=== PATIENT | female | born 1935 | race African-American/Black ===

== ENCOUNTER 2017-06-30 16:18 | Observation (INO) | payer MEDICAID ==
[~2017-06-30] VITALS: Ht 170.2 cm; Wt 68.0 kg
[2017-06-30] VITALS (7 sets, daily range): BP systolic 130–216; BP diastolic 69–87; PULSE 57–74; RESP 16–18; TEMP 97.4–98.4; O2SAT 97–99
[2017-06-30] MEDS ORDERED: ATEN50TA PO (16:35)
[2017-06-30] MEDS ORDERED: GLIP10TA6 PO (16:35)
[2017-06-30] MEDS ORDERED: METF500T PO (16:35)
[2017-06-30] MEDS ORDERED: hydrALAZINE HCL 20 MG/ML VIAL IV PUSH ONE (17:00)
[2017-06-30] MEDS ORDERED: SODIUM CHLORIDE 0.9% FLUSH 10 ML FLUSH IVF PRN (17:00)
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
--- NOTE | 2017-06-30 17:27 | RADRPT ---
EXAM DATE/TIME: 06/30/2017 17:08 [place] COMPARISON: No previous studies available for comparison. INDICATIONS : Chest pain and palpitations. MEDICAL HISTORY : Hypertension, Diabetes. SURGICAL HISTORY : None. ENCOUNTER: Initial ACUITY: 1 day PAIN SCORE: 6/10 LOCATION: Bilateral chest FINDINGS: A single view of the chest demonstrates the lungs to be symmetrically aerated without evidence of mas s, infiltrate or effusion. The cardiomediastinal contours are unremarkable with age-appropriate lucas ges of the aorta. Osseous structures are intact. CONCLUSION: Normal examination for a patient of this age. Kamran Barragan MD on June 30, 2017 at 17:24 Board Certified Radiologist. This report was verified electronically.
[2017-06-30 17:29] LABS: AUTOMATED NEUTROPHIL # 5.6 TH/MM3 (1.8-7.7); BASOPHIL % 0.4 % (0.0-2.0); EOSINOPHIL # 0.1 TH/MM3 (0-0.4); EOSINOPHIL % 1.3 % (0.0-4.0); HEMOGLOBIN 13.2 GM/DL (11.6-15.3); LYMPH % 36.3 % (9.0-44.0); LYMPHOCYTE # 3.6 TH/MM3 (1.0-4.8); MEAN CELL VOLUME 94.5 FL (80.0-100.0); MEAN CORPUSCULAR HEMOGLOBIN 31.1 PG (27.0-34.0); MEAN CORPUSCULAR HGB CONC 32.9 % (32.0-36.0); MEAN PLATELET VOLUME 7.8 FL (7.0-11.0); MONO % 5.7 % (0.0-8.0); MONOCYTE # 0.6 TH/MM3 (0-0.9); NEUT % 56.3 % (16.0-70.0); PLATELET COUNT 358 TH/MM3 (150-450); RED BLOOD COUNT 4.24 MIL/MM3 (4.00-5.30); RED CELL DISTRIBUTION WIDTH 12.9 % (11.6-17.2)
[2017-06-30 17:42] LABS: PROTHROMBIN TIME - PATIENT 10.6 SEC (9.8-11.6)
[2017-06-30 18:35] LABS: ALBUMIN 3.3 GM/DL (3.4-5.0); ALKALINE PHOSPHATASE 61 U/L (45-117); ALT (GPT) 18 U/L (10-53); AST (GOT) 32 U/L (15-37); BICARBONATE 24.6 MEQ/L (21.0-32.0); BLOOD UREA NITROGEN 14 MG/DL (7-18); CALCIUM 9.1 MG/DL (8.5-10.1); CHLORIDE 102 MEQ/L (98-107); CREATININE 1.13 MG/DL (0.50-1.00); GLOMERULAR FILTRATION RATE 46 ML/MIN (>89); GLUCOSE,RANDOM 288 MG/DL (74-106); SODIUM (NA) 136 MEQ/L (136-145); TOTAL BILIRUBIN ADULT 0.6 MG/DL (0.2-1.0); TOTAL PROTEIN 7.7 GM/DL (6.4-8.2); TROPONIN I LESS THAN 0.02 NG/ML (0.02-0.05)
[2017-06-30 18:49] LABS: BILIRUBIN, URINE NEG (NEG); BLOOD, URINE NEG (NEG); GLUCOSE,URINE 1000 mg/dL (NEG); HYALINE CAST, URINE 4 /lpf (RARE); KETONE, URINE 10 mg/dL (NEG); MUCUS URINE FEW /lpf (OCC); NITRITE,URINE NEG (NEG); PH, URINE 6.5 (5.0-8.5); URINE COLOR YELLOW (YELLW/STRAW); URINE LEUKOCYTE ESTERASE NEG (NEG)
--- NOTE | 2017-06-30 19:15 | PD ---
Data Data Last Documented VS Vital Signs Date Time Temp Pulse Resp B/P (MAP) Pulse Ox O2 Delivery O2 Flow Rate FiO2 06/30/17 17:58 74 16 160/71 (100) 98 Room Air 06/30/17 16:26 97.4 Orders Orders Electrocardiogram (06/30/17 16:55) Complete Blood Count With Diff (06/30/17 16:55) Comprehensive Metabolic Panel (06/30/17 16:55) Magnesium (Mg) (06/30/17 16:55) Ckmb (Isoenzyme) Profile (06/30/17 16:55) Troponin I (06/30/17 16:55) Act Partial Throm Time (Ptt) (06/30/17 16:55) Prothrombin Time / Inr (Pt) (06/30/17 16:55) Urinalysis - C+S If Indicated (06/30/17 16:55) Chest, Single Ap (06/30/17 16:55) Blood Glucose (06/30/17 16:55) Ecg Monitoring (06/30/17 16:55) Iv Access Insert/Monitor (06/30/17 16:55) Oximetry (06/30/17 16:55) Sodium Chloride 0.9% Flush (Ns Flush) (06/30/17 17:00) Orthostatic Vital Signs (06/30/17 16:55) Hydralazine Inj (Apresoline Inj) (06/30/17 17:00) CKMB (06/30/17 17:00) CKMB% (06/30/17 17:00) Diet 1800 Ada Cons Carb (06/30/17 Dinner) Labs Laboratory Tests Test 06/30/17 17:00 06/30/17 17:40 White Blood Count 10.0 TH/MM3 Red Blood Count 4.24 MIL/MM3 Hemoglobin 13.2 GM/DL Hematocrit 40.0 % Mean Corpuscular Volume 94.5 FL Mean Corpuscular Hemoglobin 31.1 PG Mean Corpuscular Hemoglobin Concent 32.9 % Red Cell Distribution Width 12.9 % Platelet Count 358 TH/MM3 Mean Platelet Volume 7.8 FL Neutrophils (%) (Auto) 56.3 % Lymphocytes (%) (Auto) 36.3 % Monocytes (%) (Auto) 5.7 % Eosinophils (%) (Auto) 1.3 % Basophils (%) (Auto) 0.4 % Neutrophils # (Auto) 5.6 TH/MM3 Lymphocytes # (Auto) 3.6 TH/MM3 Monocytes # (Auto) 0.6 TH/MM3 Eosinophils # (Auto) 0.1 TH/MM3 Basophils # (Auto) 0.0 TH/MM3 CBC Comment DIFF FINAL Differential Comment Prothrombin Time 10.6 SEC Prothromb Time International Ratio 1.0 RATIO Activated Partial Thromboplast Time 19.6 SEC Blood Urea Nitrogen 14 MG/DL Creatinine 1.13 MG/DL Random Glucose 288 MG/DL Total Protein 7.7 GM/DL Albumin 3.3 GM/DL Calcium Level 9.1 MG/DL Magnesium Level 2.0 MG/DL Alkaline Phosphatase 61 U/L Aspartate Amino Transf (AST/SGOT) 32 U/L Alanine Aminotransferase (ALT/SGPT) 18 U/L Total Bilirubin 0.6 MG/DL Sodium Level 136 MEQ/L Potassium Level 4.1 MEQ/L Chloride Level 102 MEQ/L Carbon Dioxide Level 24.6 MEQ/L Anion Gap 9 MEQ/L Estimat Glomerular Filtration Rate 46 ML/MIN Total Creatine Kinase 133 U/L Creatine Kinase MB 0.7 NG/ML Troponin I LESS THAN 0.02 NG/ML Urine Color YELLOW Urine Turbidity CLEAR Urine pH 6.5 Urine Specific Waldo 1.015 Urine Protein NEG mg/dL Urine Glucose (UA) 1000 mg/dL Urine Ketones 10 mg/dL Urine Occult Blood NEG Urine Nitrite NEG Urine Bilirubin NEG Urine Urobilinogen LESS THAN 2.0 MG/DL Urine Leukocyte Esterase NEG Urine RBC 8 /hpf Urine WBC 1 /hpf Urine Hyaline Casts 4 /lpf Urine Mucus FEW /lpf Microscopic Urinalysis Comment CULT NOT INDICATED [facility] Supervised Visit with HANNAH: Yes Narrative Course The history, exam, and medical decision-making in the associated midlevel provider note were completed with my assistance. I reviewed and agree with the findings presented. I attest that I had a [id number] encounter with the patient on the same day, and personally performed and documented my assessment and findings in the medical record. *My assessment and Findings: This is an 82-year-old female who presents to the emergency department with an episode of lightheadedness and near syncope. She was placed on a monitor and an IV was established. Labs are are reassuring. EKG appears quite ischemic with T-wave inversions in leads V2 through V4. I think she requires in leads V2 through V4. I think she requires observation for serial cardiac enzymes and risk stratification given her abnormal EKG and her age. Diagnosis Primary Impression: Near syncope Additional Impression: Abnormal EKG Admitting Information Admitting Physician Requests: Observation Petrona Cast MD Jun 30, 2017 19:15
[2017-06-30] MEDS ORDERED: LACTULOSE SYRUP 20 GM/30 ML CUP PO PRN (19:30)
[2017-06-30] MEDS ORDERED: ACETAMINOPHEN 325 MG TAB PO PRN (19:30)
[2017-06-30] MEDS ORDERED: SODIUM CHLORIDE 0.9% FLUSH 10 ML FLUSH IV FLUSH PRN (19:30)
[2017-06-30] MEDS ORDERED: BISACODYL 10 MG SUPP RECTAL PRN (19:30)
[2017-06-30] MEDS ORDERED: MORPHINE SULFATE 2 MG/ML INJ IV PUSH PRN (19:30)
[2017-06-30] MEDS ORDERED: DEXTROSE 50% IN WATER 50 ML VIAL(D50) IV PUSH PRN (19:30)
[2017-06-30] MEDS ORDERED: ONDANSETRON HCL 4 MG/2 ML VIAL IVP PRN (19:30)
[2017-06-30] MEDS ORDERED: MAGNESIUM HYDROXIDE SUSP 30 ML CUP PO PRN (19:30)
[2017-06-30] MEDS ORDERED: SENNOSIDES 8.6 MG TAB PO PRN (19:30)
[2017-06-30] MEDS ORDERED: ACETAMINOPHEN/HYDROcodone 325 MG/5 MG TAB PO PRN (19:30)
[2017-06-30] MEDS ORDERED: GLUCAGON 1 MG/ML VIAL OTHER PRN (19:30)
[2017-06-30] MEDS ORDERED: SODIUM CHLOR 0.9% 1000 ML INJ 1,000 ML IV SCH (19:30)
--- NOTE | 2017-06-30 19:30 | HHI.HP ---
[facility] No Primary Care Physician Admission Diagnosis Diagnoses: (1) Near syncope Diagnosis: Principal (2) HTN (hypertension) Diagnosis: Principal (3) Renal insufficiency Diagnosis: Principal (4) DM (diabetes mellitus) Diagnosis: Principal Travel History International Travel<30 Days: No Contact w/Intl Traveler <30 Da: No Traveled to Known Affected Are: No History of Present Illness This is an 82-year-old female with a PMH of HTN and DM who is brought to the ER by EMS secondary to near syncopal episode. Per patient she had taken half-tab of Atenolol (25mg) this morning as she was running out, and had gone to [facility] to refill her prescription when she developed acute onset of dizziness/ lightheadedness w/ near syncope. Drank a few sips of Glucerna w/ no significant improvement. Denies h/o similar symptoms. No c/o chest pain, SOB, cough, fever or chills. Upon EMS arrival, BS 301. BP 216/87, HR 57, O2 sat 97 % on RA, Afebrile. CBC unremarkable. Creatinine 1.13, no previous labs for comparison. Troponin negative. INR 1.0. UA negative. CXR normal. EKG w/ t- wave inversions lateral leads. No prior EKG for comparison. Review of Systems Except as stated in HPI: all other systems reviewed are Neg ROS: 14 point review of systems otherwise negative. Past Family Social History Past Medical History PMH: HTN and DM Past Surgical History PAST SURGICAL HISTORY: Hysterectomy Allergies: Coded Allergies: No Known Allergies (Unverified , 06/30/17) Family History PAST FAMILY HISTORY: Reviewed. No h/o DM or CAD Social History PAST SOCIAL HISTORY: Negative for alcohol, tobacco or drugs. Physical Exam Vital Signs Vital Signs Date Time Temp Pulse Resp B/P (MAP) Pulse Ox O2 Delivery O2 Flow Rate FiO2 06/30/17 17:58 74 16 160/71 (100) 98 Room Air 06/30/17 17:55 67 16 172/70 (104) 66 16 167/74 (105) 81 18 172/77 (108) 06/30/17 17:01 16 98 Room Air 06/30/17 16:35 16 98 Room Air 06/30/17 16:26 97.4 57 16 216/87 (130) 97 Physical Exam PE: GENERAL: Extremely pleasant elderly female in no acute distress. Son at bedside. HEENT: PERRLA, EOMI. No scleral icterus or conjunctival pallor. No lid lag or facial droop. CARDIOVASCULAR: Regular rate and rhythm. No obvious murmurs to auscultation. No chest tenderness to palpation. RESPIRATORY: No obvious rhonchi or wheezing. Clear to auscultation. Breath sounds equal bilaterally. GASTROINTESTINAL: Abdomen soft, non-tender, nondistended. BS normal. MUSCULOSKELETAL: Extremities without clubbing, cyanosis, or edema. No obvious deformities. NEUROLOGICAL: Awake, alert and oriented x4. No focal neurologic deficits. Moving both upper and lower extremities spontaneously. Laboratory Laboratory Tests Test 06/30/17 17:00 06/30/17 17:40 White Blood Count 10.0 Red Blood Count 4.24 Hemoglobin 13.2 Hematocrit 40.0 Mean Corpuscular Volume 94.5 Mean Corpuscular Hemoglobin 31.1 Mean Corpuscular Hemoglobin Concent 32.9 Red Cell Distribution Width 12.9 Platelet Count 358 Mean Platelet Volume 7.8 Neutrophils (%) (Auto) 56.3 Lymphocytes (%) (Auto) 36.3 Monocytes (%) (Auto) 5.7 Eosinophils (%) (Auto) 1.3 Basophils (%) (Auto) 0.4 Neutrophils # (Auto) 5.6 Lymphocytes # (Auto) 3.6 Monocytes # (Auto) 0.6 Eosinophils # (Auto) 0.1 Basophils # (Auto) 0.0 CBC Comment DIFF FINAL Differential Comment Prothrombin Time 10.6 Prothromb Time International Ratio 1.0 Activated Partial Thromboplast Time 19.6 Blood Urea Nitrogen 14 Creatinine 1.13 Random Glucose 288 Total Protein 7.7 Albumin 3.3 Calcium Level 9.1 Magnesium Level 2.0 Alkaline Phosphatase 61 Aspartate Amino Transf (AST/SGOT) 32 Alanine Aminotransferase (ALT/SGPT) 18 Total Bilirubin 0.6 Sodium Level 136 Potassium Level 4.1 Chloride Level 102 Carbon Dioxide Level 24.6 Anion Gap 9 Estimat Glomerular Filtration Rate 46 Total Creatine Kinase 133 Creatine Kinase MB 0.7 Troponin I LESS THAN 0.02 Urine Color YELLOW Urine Turbidity CLEAR Urine pH 6.5 Urine Specific Willard 1.015 Urine Protein NEG Urine Glucose (UA) 1000 Urine Ketones 10 Urine Occult Blood NEG Urine Nitrite NEG Urine Bilirubin NEG Urine Urobilinogen LESS THAN 2.0 Urine Leukocyte Esterase NEG Urine RBC 8 Urine WBC 1 Urine Hyaline Casts 4 Urine Mucus FEW Microscopic Urinalysis Comment CULT NOT INDICATED Result Diagram: 06/30/17169906/30/171699 Caprini VTE Risk Assessment Caprini VTE Risk Assessment: No/Low Risk (score <= 1) Caprini Risk Assessment Model Point Value = 1 Point Value = 2 Point Value = 3 Point Value = 5 Age 41-60 Minor surgery BMI > 25 kg/m2 Swollen legs Varicose veins or History of unexplained or recurrent spontaneous Oral contraceptives or hormone replacement Sepsis (< 1 month) Serious lung disease, including pneumonia (< 1 month) Abnormal pulmonary function Acute myocardial infarction Congestive heart failure (< 1 month) History of inflammatory bowel disease Medical patient at bed rest Age 61-74 Arthroscopic surgery Major open surgery (> 45 min) Laparoscopic surgery (> 45 min) Malignancy Confined to bed (> 72 hours) Immobilizing plaster cast Central venous access Age >= 75 History of VTE Family history of VTE Factor V Leiden Prothrombin [id number] Lupus anticoagulant Anticardiolipin antibodies Elevated serum homocysteine Heparin-induced thrombocytopenia Other congenital or acquired thrombophilia Stroke (< 1 month) Elective arthroplasty Hip, pelvis, or leg fracture Acute spinal cord injury (< 1 month) Prophylaxis Regimen Total Risk Factor Score Risk Level Prophylaxis Regimen 0-1 Low Early ambulation 2 Moderate Order ONE of the following: *Sequential Compression Device (SCD) *Heparin 5000 units SQ BID 3-4 Higher Order ONE of the following medications: *Heparin 5000 units SQ TID *Enoxaparin/Lovenox 40 mg SQ daily (WT < 150 kg, CrCl > 30 mL/min) *Enoxaparin/Lovenox 30 mg SQ daily (WT < 150 kg, CrCl > 10-29 mL/min) *Enoxaparin/Lovenox 30 mg SQ BID (WT < 150 kg, CrCl > 30 mL/min) AND/OR *Sequential Compression Device (SCD) 5 or more Highest Order ONE of the following medications: *Heparin 5000 units SQ TID (Preferred with Epidurals) *Enoxaparin/Lovenox 40 mg SQ daily (WT < 150 kg, CrCl > 30 mL/min) *Enoxaparin/Lovenox 30 mg SQ daily (WT < 150 kg, CrCl > 10-29 mL/min) *Enoxaparin/Lovenox 30 mg SQ BID (WT < 150 kg, CrCl > 30 mL/min) AND *Sequential Compression Device (SCD) Assessment and Plan Problem List: (1) Near syncope ICD Code: R55 - Syncope and collapse Status: Acute (2) Renal insufficiency ICD Code: N28.9 - Disorder of kidney and ureter, unspecified (3) HTN (hypertension) ICD Code: I10 - Essential (primary) hypertension (4) DM (diabetes mellitus) ICD Code: E11.9 - Type 2 diabetes mellitus without complications Assessment and Plan A/P: 1. Near Syncope: acute onset of dizziness/lightheadedness w/ near syncopal event. +abnormal ekg w/ lateral t-wave inversions, no previous EKG for comparison, R/o ACS to eval for possible ischemia. Initial trop negative. Admit for Observation, place on telemetry, check serial cardiac enzymes and serial EKG. Start ASA, Statin, resume Atenolol-caution w/ bradycardia. Consult Cardiology as needed for further eval. Check Echo to eval for valvular abnormality/cardiomyopathy. 2. HTN: Uncontrolled. Took 1/2 dose of Atenolol today as running out of meds. BP on arrival, 216/87, HR 57. Resume home Atenolol, hold parameters for bradycardia, monitor BP closely. 3. DM: Uncontrolled. BS 288. Check Hgb A1c. Start Sliding scale w/ Accu- Cheks. Resume home Glipizide. Hold Metformin for possible cardiac intervention. 4. DVT Prophylaxis: SCD/Teds. 5. Social work for d/c planning as needed. 6. Labs/imaging/records reviewed by me, case discussed at length w/ ER physician. Jackie Corrigan MD Jun 30, 2017 19:30
[2017-06-30] MEDS: DOCUSATE SODIUM 50 MG/SENNA 8.6 MG TAB PO SCH (21:00)
[2017-06-30] MEDS: SODIUM CHLORIDE 0.9% FLUSH 10 ML FLUSH IV FLUSH SCH (21:25)
[2017-06-30] MEDS: INSULIN ASPART SUPPLEMENTAL SCALE SQ SCH (21:25)
[2017-07-01 04:05] VITALS: BP 139/67; PULSE 66; RESP 16; TEMP 98.2; O2SAT 100
[2017-07-01 06:45] LABS: AST (GOT) 9 U/L (15-37); BICARBONATE 25.5 MEQ/L (21.0-32.0); BLOOD UREA NITROGEN 12 MG/DL (7-18); CALCIUM 8.7 MG/DL (8.5-10.1); CHLORIDE 104 MEQ/L (98-107); CREATININE 0.96 MG/DL (0.50-1.00); GLOMERULAR FILTRATION RATE 68 ML/MIN (>89); GLUCOSE,RANDOM 220 MG/DL (74-106); SODIUM (NA) 136 MEQ/L (136-145)
[2017-07-01 06:46] LABS: ALT (GPT) 15 U/L (10-53); CHOLESTEROL 189 MG/DL (120-200); TRIGLYCERIDES 107 MG/DL (42-150)
[2017-07-01 06:50] LABS: ALKALINE PHOSPHATASE 59 U/L (45-117); CHOLESTEROL/ HDL RATIO 3.24 RATIO; HDL CHOLESTEROL 58.2 MG/DL (40.0-60.0); LDL CHOLESTEROL 109 MG/DL (0-99); TOTAL BILIRUBIN ADULT 0.8 MG/DL (0.2-1.0); TOTAL PROTEIN 6.7 GM/DL (6.4-8.2); TROPONIN I LESS THAN 0.02 NG/ML (0.02-0.05)
[2017-07-01] MEDS ORDERED: glipiZIDE 10 MG TAB PO SCH (07:00)
[2017-07-01 08:00] VITALS: BP 186/79; PULSE 67; PULSE 77; RESP 20; TEMP 97.2; O2SAT 100
[2017-07-01] MEDS: INSULIN ASPART SUPPLEMENTAL SCALE SQ SCH ×3 (08:00→17:00)
[2017-07-01] MEDS: DOCUSATE SODIUM 50 MG/SENNA 8.6 MG TAB PO SCH (08:35)
[2017-07-01] MEDS: SODIUM CHLORIDE 0.9% FLUSH 10 ML FLUSH IV FLUSH SCH (08:36)
[2017-07-01 08:52] LABS: BASOPHIL % 0.5 % (0.0-2.0); EOSINOPHIL # 0.1 TH/MM3 (0-0.4); EOSINOPHIL % 1.3 % (0.0-4.0); HEMATOCRIT 37.9 % (35.0-46.0); HEMOGLOBIN 12.7 GM/DL (11.6-15.3); LYMPH % 28.5 % (9.0-44.0); LYMPHOCYTE # 2.3 TH/MM3 (1.0-4.8); MEAN CELL VOLUME 93.2 FL (80.0-100.0); MEAN CORPUSCULAR HEMOGLOBIN 31.2 PG (27.0-34.0); MEAN CORPUSCULAR HGB CONC 33.4 % (32.0-36.0); MEAN PLATELET VOLUME 7.9 FL (7.0-11.0); MONO % 6.8 % (0.0-8.0); MONOCYTE # 0.5 TH/MM3 (0-0.9); NEUT % 62.9 % (16.0-70.0); PLATELET COUNT 319 TH/MM3 (150-450); RED BLOOD COUNT 4.06 MIL/MM3 (4.00-5.30); RED CELL DISTRIBUTION WIDTH 12.8 % (11.6-17.2)
[2017-07-01] MEDS ORDERED: ASPIRIN EC 81 MG TABEC PO SCH (09:00)
[2017-07-01] MEDS ORDERED: ATENOLOL 50 MG TAB PO SCH (09:00)
[2017-07-01] MEDS ORDERED: PRAVASTATIN SOD 40 MG TAB PO SCH (09:00)
--- NOTE | 2017-07-01 09:53 | HHI.PR ---
Subjective Remarks In nad. Patient says no more chest pain overnight. No sob, palpitations, diaphoresis. No fever or chills. No n/v/d/c. Objective Vitals Vital Signs Date Time Temp Pulse Resp B/P (MAP) Pulse Ox O2 Delivery O2 Flow Rate FiO2 07/01/17 08:00 97.2 77 20 186/79 (114) 100 07/01/17 04:05 98.2 66 16 139/67 (91) 100 06/30/17 23:56 98.3 66 16 142/69 (93) 99 06/30/17 22:04 98.4 66 16 130/79 (96) 99 06/30/17 20:28 65 18 162/72 (102) 100 06/30/17 17:58 74 16 160/71 (100) 98 Room Air 06/30/17 17:55 67 16 172/70 (104) 66 16 167/74 (105) 81 18 172/77 (108) 06/30/17 17:01 16 98 Room Air 06/30/17 16:35 16 98 Room Air 06/30/17 16:26 97.4 57 16 216/87 (130) 97 Result Diagram: 07/01/17 0710 07/01/17 0600 Imaging Last Impressions Chest X-Ray 06/30/17 1655 Signed Impressions: Service Date/Time: Friday, June 30, 2017 17:08 - CONCLUSION: Normal examination for a patient of this age. Kamran Barragan MD Objective Remarks GENERAL: Extremely pleasant elderly female in no acute distress. Son at bedside. CARDIOVASCULAR: Regular rate and rhythm. No obvious murmurs to auscultation. No chest tenderness to palpation. RESPIRATORY: No obvious rhonchi or wheezing. Clear to auscultation. Breath sounds equal bilaterally. GASTROINTESTINAL: Abdomen soft, non-tender, nondistended. BS normal. MUSCULOSKELETAL: Extremities without clubbing, cyanosis, or edema. No obvious deformities. NEUROLOGICAL: Awake, alert and oriented x4. No focal neurologic deficits. Moving both upper and lower extremities spontaneously. A/P Problem List: (1) Near syncope ICD Code: R55 - Syncope and collapse Status: Acute (2) Renal insufficiency ICD Code: N28.9 - Disorder of kidney and ureter, unspecified (3) HTN (hypertension) ICD Code: I10 - Essential (primary) hypertension (4) DM (diabetes mellitus) ICD Code: E11.9 - Type 2 diabetes mellitus without complications Assessment and Plan Near Syncope: acute onset of dizziness/lightheadedness w/ near syncopal event. +abnormal ekg w/ lateral t-wave inversions, no previous EKG for comparison, R/ o ACS to eval for possible ischemia. Initial trop negative. Admit for Observation, place on telemetry, check serial cardiac enzymes and serial EKG. Start ASA, Statin, resume Atenolol-caution w/ bradycardia. Consult Cardiology as needed for further eval. Check Echo normal EF, moderate aortic valve regurgitation Stress test is negative Patient to follow up as OP with PCP and cardiology HTN: Uncontrolled. Took 1/2 dose of Atenolol today as running out of meds. BP on arrival, 216/87, HR 57. Resume home Atenolol, hold parameters for bradycardia, monitor BP closely. DM2: Uncontrolled. BS 288. Check Hgb A1c. Start Sliding scale w/ Accu- Cheks. Resume home Glipizide. Hold Metformin for possible cardiac intervention. DVT Prophylaxis: SCD/Teds. CM consulted for d/c planning as needed. Discharge Planning DC home in stable condition to follow up as OP with PCP and consultants. Activity ad mariana as tolerated Meds per med reconciliations Diet healthy heart diet DC time> 30 min Rosana Youssef MD Jul 01, 2017 09:53
--- NOTE | 2017-07-01 11:52 | RADRPT ---
EXAM DATE/TIME: 07/01/2017 10:09 [facility] COMPARISON: No previous studies available for comparison. INDICATIONS : Syncope. MEDICAL HISTORY : Hypertension. Syncope. Diabetes. SURGICAL HISTORY : Hysterectomy. ENCOUNTER: Initial ACUITY: 1 day PAIN SCORE: 06/21 LOCATION: Bilateral neck PEAK SYSTOLIC VELOCITIES (cm/sec): ICA/CCA RATIO: Right: 1.2 Left: 1.1 ICA: Right: 91 Left: 83 CCA: Right: 76 Left: 79 ECA: Right: 90 Left: 67 VERTEBRAL: Right: 36 antegrade Left: 67 antegrade Elevated flow velocities and ICA/CCA ratios have been found to correlate with increased degrees of vessel stenosis, calculated as percentage of diameter relative to a normal segment of distal ICA/CCA FINDINGS: Antegrade flow is seen in both vertebral arteries. There is moderate atherosclerotic plaquing at the origin of both ICAs without any significant stenosis. CONCLUSION: No evidence for hemodynamically significant stenosis. Danial oLmax MD on July 01, 2017 at 11:49 Board Certified Radiologist. This report was verified electronically.
[2017-07-01 12:00] VITALS: BP 154/69; PULSE 60; RESP 20; TEMP 97.8; O2SAT 100
--- NOTE | 2017-07-01 12:00 | MB ---
cc: BERTRAM DUNLAP MD DATE OF CONSULTATION: 07/01/2017. REASON FOR CONSULTATION: Near syncope. HISTORY OF PRESENT ILLNESS: The patient is a pleasant 82-year-old woman with no prior cardiac history but has a history of hypertension and diabetes who presented after feeling near-syncopal while she was at [facility]. She has not actually pass out. She was brought to the emergency department and because her EKG was abnormal, was admitted for observation. She denies any current or history of chest pain. No other significant episodes of near-syncope and she is currently asymptomatic. PAST MEDICAL HISTORY: 1. Hypertension. 2. Diabetes. CURRENT MEDICATIONS: 1. Atenolol 15 milligrams daily. 2. Aspirin 81 milligrams daily. 3. Pravachol 40 milligrams daily. 4. Glipizide 10 milligrams twice a day. ALLERGIES: NO KNOWN DRUG ALLERGIES. PHYSICAL EXAMINATION: VITAL SIGNS: Afebrile, pulse 77, respiratory rate 20, blood pressure 186/79, satting 100% on room air. GENERAL: A pleasant well-appearing -[place] woman in no distress. NECK: No jugular venous distention. LUNGS: Clear to auscultation bilaterally. CARDIOVASCULAR: Regular rate and rhythm. No murmurs appreciated. ABDOMEN: Benign. EXTREMITIES: No edema. LABORATORY DATA: Sodium 136, potassium 3.6, chloride 104, bicarbonate 25.5, BUN 12, creatinine 0.96, glucose 220. EKGS: EKG shows sinus rhythm with anterolateral T wave changes possibly consistent with ischemia. RADIOLOGICAL STUDIES: Chest x-ray was normal. IMPRESSION: 1. Near syncope: The patient presents with near syncope and an abnormal EKG. She was actually quite hypertensive on admission. Due to her multiple risk factors including hypertension and diabetes as well as her advanced age, I would have her undergo an ischemic workup with a nuclear stress test as well and echocardiogram and carotid Dopplers. Further recommendations will be based on her clinical course. Thank you again for the opportunity to participate in this patient's care. MD EDVIN Phelan/SILVESTRE /10:41 AM /11:43 AM
[2017-07-01 12:06] LABS: HEMOGLOBIN A1C 9.9 % (4.3-6.0)
[2017-07-01] MEDS ORDERED: REGADENOSON INJ 0.4 MG/5 ML SYR ONE (12:52)
--- NOTE | 2017-07-01 13:14 | EKG ---
Date Performed: 06/30/2017 Time Performed: 17:19:25 PTAGE: 82 years EKG: Sinus rhythm MINIMAL VOLTAGE CRITERIA FOR LVH, CONSIDER NORMAL VARIANT MODERATE T-WAVE ABNORMALITY, CONSIDER ANTE RIOR ISCHEMIA ABNORMAL ECG NO PREVIOUS TRACING DOCTOR: Graham Contreras Interpretating Date/Time 07/01/2017 13:13:55
--- NOTE | 2017-07-01 14:25 | RADRPT ---
EXAM DATE/TIME: 07/01/2017 12:41 [facility] COMPARISON: No previous studies available for comparison. INDICATIONS : Near syncope. Abnormal EKG. DOSE: 25.6 mCi Tc99m Myoview at stress. 8.7 mCi Tc99m Myoview at rest. 0.4 mg Lexiscan STRESS SYMPTOMS: Shortness of breath. EJECTION FRACTION: 67% MEDICAL HISTORY : Hypertension. Diabetes mellitus type 2. SURGICAL HISTORY : Hysterectomy. ENCOUNTER: Initial ACUITY: 1 day PAIN SCALE: 0/10 LOCATION: chest TECHNIQUE: The patient underwent pharmacologic stress with infusion of prescribed dose. Continuous ECG tracing was monitored during stress. Gated SPECT imaging was performed after stress and conventional SPECT i maging was performed at rest. The examination was performed on a SPECT/CT scanner, both attenuation and non-corrected datasets were reviewed. FINDINGS: DISTRIBUTION: The maximum perfused segment at stress is in the septal wall. PERFUSION STUDY: The pattern of perfusion at stress demonstrates fixed defect in the anterior wall probably breast att enuation artifact without any significant ischemia. GATED STUDY: There is intact wall motion and thickening without hypokinetic or dyskinetic segments. CONCLUSION: No appreciable ischemia. RISK CATEGORY: Low (<1% Annual Mortality Rate) Danial Lomax MD on July 01, 2017 at 14:22 Board Certified Radiologist. This report was verified electronically.
--- NOTE | 2017-07-01 14:40 | ECHRPT ---
Indication: Cardiomyopathy, unspecified CONCLUSIONS Normal left ventricular size and wall thickness. The left ventricular systolic function is normal wi th an estimated ejection fraction in the range of 60-65%. Left ventricular diastolic function parameters a re normal. Moderate aortic valve regurgitation. Mild mitral valve regurgitation. There is moderate tricuspid regurgitation. The estimated pulmonary arterial pressure is 37.9 mmHg. Mild pulmonary valve regurgitation. BP: / HR: 60 Rhythm: Sinus MEASUREMENTS (Male / Female) Normal Values Technical Quality:Good 2D ECHO LV Diastolic Diameter PLAX 4.7 cm 4.2 - 5.9 / 3.9 - 5.3 cm LV Systolic Diameter PLAX 3.4 cm IVS Diastolic Thickness 0.8 cm 0.6 - 1.0 / 0.6 - 0.9 cm LVPW Diastolic Thickness 0.8 cm 0.6 - 1.0 / 0.6 - 0.9 cm LV Relative Wall Thickness 0.3 LVOT Diameter 1.9 cm M-MODE Aortic Root Diameter MM 2.7 cm LA Systolic Diameter MM 3.4 cm LA Ao Ratio MM 1.3 AV Cusp Separation MM 1.6 cm DOPPLER AV Peak Velocity 147.0 cm/s AV Peak Gradient 8.6 mmHg AI Peak Velocity 431.0 cm/s AI Peak Gradient 74.3 mmHg AI Pressure Half Time 685.0 ms LVOT Peak Velocity 103.0 cm/s LVOT Peak Gradient 4.2 mmHg AV Area Cont Eq pk 2.0 cm MR Peak Velocity 476.0 cm/s MR Peak Gradient 90.6 mmHg Mitral E Point Velocity 69.6 cm/s Mitral A Point Velocity 101.0 cm/s Mitral E to A Ratio 0.7 LV E' Lateral Velocity 5.4 cm/s Mitral E to LV E' Lateral Ratio 13.0 LV E' Septal Velocity 4.4 cm/s Mitral E to LV E' Septal Ratio 15.9 TR Peak Velocity 264.3 cm/s TR Peak Gradient 27.9 mmHg Right Atrial Pressure 10.0 mmHg Pulmonary Artery Systolic Pressu 37.9 mmHg Right Ventricular Systolic Press 37.9 mmHg PV Peak Velocity 89.6 cm/s PV Peak Gradient 3.2 mmHg FINDINGS LEFT VENTRICLE Normal left ventricular size and wall thickness. The left ventricular systolic function is normal wi th an estimated ejection fraction in the range of 60-65%. Doppler parameters are consistent with impaired left ventricular relaxtion (grade 1 diastolic dysfun ction). RIGHT VENTRICLE Normal right ventricular size and systolic function. LEFT ATRIUM The left atrial size is normal. RIGHT ATRIUM The right atrial size is normal. ATRIAL SEPTUM Normal atrial septal thickness without atrial level shunting by limited color doppler interrogation. AORTA The aortic root and proximal ascending aorta are normal in size on limited imaging. MITRAL VALVE Mild mitral valve regurgitation. AORTIC VALVE Moderate aortic valve regurgitation. TRICUSPID VALVE There is moderate tricuspid regurgitation. The estimated pulmonary arterial pressure is 37.9 mmHg. PULMONARY VALVE Mild pulmonary valve regurgitation. VESSELS The inferior vena cava is normal in size. PERICARDIUM No pericardial effusion. Graham Contreras MD (Electronically Signed) Final Date:01 July 2017 14:39
[2017-07-01 16:00] VITALS: BP 156/76; PULSE 65; RESP 20; TEMP 98.1; O2SAT 99
[2017-07-01] MEDS ORDERED: ECASA81 PO (16:18)
--- NOTE | 2017-07-01 16:22 | HHI.DCPOC ---
Discharge Care Plan Diagnosis: (1) Aortic valve regurgitation (2) Tricuspid valve regurgitation (3) Hemoglobin A1C greater than 9%, indicating poor diabetic control (4) DM (diabetes mellitus) (5) HTN (hypertension) (6) Renal insufficiency (7) Near syncope (8) Abnormal EKG Goals to Promote Your Health * To prevent worsening of your condition and complications * To maintain your health at the optimal level Directions to Meet Your Goals Strongly advise you to follow up with cardiology as an outpatient in regards to your echocardiogram results - moderate aortic valve regurgitation and moderate tricuspid regurgitation Strongly advise you to follow up with your primary care physician regarding your poorly controlled diabetes. Maintain a heart healthy diabetic diet Take your medications as prescribed Follow your dietary instruction Follow activity as directed Keep your appointments as scheduled Take your immunizations and boosters as scheduled If your symptoms worsen call your PCP, if no PCP go to Urgent Care Center or Emergency Room Smoking is Dangerous to Your Health. Avoid second hand smoke Call the 24-hour hour crisis hotline for domestic abuse at Lina Day Jul 01, 2017 16:22
== END 2017-07-01 19:24 | disposition home or self-care (01) ==
LOC: NEPC 16:18 → NEDA 19:37 → NEPGCP 20:55
PROVIDERS: ADMIT Hospitalist; ATTEND Hospitalist
DX: R55 Syncope and collapse (principal); I35.1 Nonrheumatic aortic (valve) insufficiency; I07.1 Rheumatic tricuspid insufficiency; E11.65 Type 2 diabetes mellitus with hyperglycemia; I10 Essential (primary) hypertension; N28.9 Disorder of kidney and ureter, unspecified; R94.31 Abnormal electrocardiogram [ECG] [EKG]; Z79.84 Long term (current) use of oral hypoglycemic drugs; Z79.82 Long term (current) use of aspirin; Z90.710 Acquired absence of both cervix and uterus
CPT/HCPCS: 71045; 78452; 80053; 80061; 81001; 82550; 82552; 82948; 83036; 83735; 84484; 85025; 85610; 85730; 93005; 93017; 93306; 93880; 96361; 96372; 96374; 97161; 99285; A9502; G0378; G8987; G8988; J0360; J1815; J2785; J7030

== ENCOUNTER 2017-07-05 15:15 | Emergency (ER) | payer MEDICAID ==
[~2017-07-05] VITALS: Ht 170.2 cm; Wt 67.3 kg
[~2017-07-05 15:15] MED LIST: ATEN50TA PO; ECASA81 PO; GLIP10TA6 PO; METF500T PO
[2017-07-05 15:22] VITALS: BP 218/97; PULSE 68; RESP 14; TEMP 97.4; O2SAT 98
[2017-07-05 15:48] VITALS: BP 179/77; PULSE 62; RESP 16; O2SAT 99
[2017-07-05] MEDS ORDERED: SODIUM CHLORID 0.9% 500 ML INJ 500 ML IV ONE ×2 (16:00→19:00)
--- NOTE | 2017-07-05 16:06 | PD ---
HPI Chief Complaint: Diabetic Time Seen by Provider: 15:32 Travel History International Travel<30 days: No Contact w/Intl Traveler<30days: No Traveled to known affect area: No History of Present Illness HPI Patient comes into the emergency department complaining of elevated blood sugar 400 and some blurry vision with this. Patient states that she ate approximately 30 minutes prior to checking her blood glucose, but felt that it was going high secondary to feeling like her vision becoming slightly blurry. Patient reports symptoms are improving. Patient denies any chest pain with this , shortness of breath, headaches, numbness or tingling, weakness, or dizziness. Patient reports she was in the hospital approximately a week ago for the same was receiving insulin at that time but currently only takes her oral medications. Patient states she has lived in the [place] for 14 months, but does not have a primary care doctor. PFSH Past Medical History Blood Disorders: No Cancer: No Cardiovascular Problems: Yes (HTN) Diabetes: Yes (DMII) Patient Takes Glucophage: No Endocrine: No Hypertension: Yes Immune Disorder: No Thyroid Disease: No Past Surgical History Surgical History: No Previous Surgery Hysterectomy: Yes Social History Alcohol Use: No Tobacco Use: No Substance Use: No Allergies-Medications (Allergen,Severity, Reaction): Coded Allergies: No Known Allergies (Unverified , 06/30/17) Reported Meds & Prescriptions Reported Meds & Active Scripts Active Aspirin DR (Aspirin) 81 Mg Tabdr 81 Mg PO DAILY Reported Atenolol 50 Mg Tab 50 Mg PO DAILY Glipizide 10 Mg Tab 10 Mg PO BIDAC Take 30 minutes before a meal Metformin (Metformin HCl) 500 Mg Tab 500 Mg PO BIDPC Review of Systems Except as stated in HPI: all other systems reviewed are Neg Physical Exam Narrative GENERAL: Well-developed, well nourished, in no acute distress, and non-ill appearing. SKIN: Focused skin assessment warm and dry. HEAD: Atraumatic. Normocephalic. EYES: Pupils equal and round. EOMI. No scleral icterus. No injection or drainage. ENT: No nasal bleeding or discharge. Mucous membranes pink and moist. NECK: Trachea midline. Supple. No nuclear rigidity. CARDIOVASCULAR: Regular rate and rhythm. No murmur appreciated. RESPIRATORY: No accessory muscle use. No respiratory distress. Clear to auscultation. Breath sounds equal bilaterally. MUSCULOSKELETAL: No obvious deformities. No clubbing. No cyanosis. No edema. Full range of motion. NEUROLOGICAL: Awake and alert. No obvious cranial nerve deficits. Motor grossly within normal limits. Normal speech. PSYCHIATRIC: Appropriate mood and affect; insight and judgment normal. Data Data Last Documented VS Vital Signs Date Time Temp Pulse Resp B/P (MAP) Pulse Ox O2 Delivery O2 Flow Rate FiO2 07/05/17 20:04 07/05/17 15:48 62 16 99 Room Air 07/05/17 15:22 97.4 Orders Orders Complete Blood Count With Diff (07/05/17 15:25) Urinalysis - C+S If Indicated (07/05/17 15:25) Beta Hydroxybutyrate (Acetone) (07/05/17 15:58) Blood Gas Venous (Vbg) (07/05/17 15:58) Sodium Chlorid 0.9% 500 Ml Inj (Ns 500 M (07/05/17 16:00) Lipase (07/05/17 15:58) Comprehensive Metabolic Panel (07/05/17 16:00) Sodium Chlorid 0.9% 500 Ml Inj (Ns 500 M (07/05/17 19:00) Ed Discharge Order (07/05/17 19:58) Labs Laboratory Tests Test 07/05/17 16:00 07/05/17 16:30 07/05/17 17:34 07/05/17 19:20 Blood Urea Nitrogen 14 MG/DL Creatinine 1.05 MG/DL Random Glucose 331 MG/DL Total Protein 7.8 GM/DL Albumin 3.5 GM/DL Calcium Level 10.0 MG/DL Alkaline Phosphatase 63 U/L Aspartate Amino Transf (AST/SGOT) 14 U/L Alanine Aminotransferase (ALT/SGPT) 16 U/L Total Bilirubin 0.7 MG/DL Sodium Level 135 MEQ/L Potassium Level 3.9 MEQ/L Chloride Level 101 MEQ/L Carbon Dioxide Level 23.0 MEQ/L Anion Gap 11 MEQ/L Estimat Glomerular Filtration Rate 61 ML/MIN Lipase 147 U/L B-Hydroxybutyrate 0.37 MMOL/L Blood Gas Puncture Site RAC Blood Gas Patient Temperature 98.6 Venous Blood pH 7.40 Venous Blood Partial Pressure CO2 39 mmHg Venous Blood Partial Pressure O2 21 mmHg Venous Blood HCO3 24 mmol/L Venous Blood Oxygen Saturation 32 % Venous Blood Oxygen Content 5.4 Vol % Venous Blood Base Excess -0.6 mmol/L Oxygen Delivery Device RA Blood Gas Inspired Oxygen 21 % White Blood Count 8.2 TH/MM3 Red Blood Count 4.42 MIL/MM3 Hemoglobin 14.1 GM/DL Hematocrit 41.2 % Mean Corpuscular Volume 93.1 FL Mean Corpuscular Hemoglobin 31.8 PG Mean Corpuscular Hemoglobin Concent 34.1 % Red Cell Distribution Width 12.5 % Platelet Count 351 TH/MM3 Mean Platelet Volume 8.0 FL Neutrophils (%) (Auto) 64.6 % Lymphocytes (%) (Auto) 27.6 % Monocytes (%) (Auto) 6.2 % Eosinophils (%) (Auto) 1.1 % Basophils (%) (Auto) 0.5 % Neutrophils # (Auto) 5.3 TH/MM3 Lymphocytes # (Auto) 2.3 TH/MM3 Monocytes # (Auto) 0.5 TH/MM3 Eosinophils # (Auto) 0.1 TH/MM3 Basophils # (Auto) 0.0 TH/MM3 CBC Comment DIFF FINAL Differential Comment Urine Color LIGHT-YELLOW Urine Turbidity CLEAR Urine pH 5.5 Urine Specific [place] 1.001 Urine Protein NEG mg/dL Urine Glucose (UA) 1000 mg/dL Urine Ketones TRACE mg/dL Urine Occult Blood TRACE Urine Nitrite NEG Urine Bilirubin NEG Urine Urobilinogen LESS THAN 2.0 MG/DL Urine Leukocyte Esterase NEG Urine RBC 1 /hpf Urine WBC LESS THAN 1 /hpf Microscopic Urinalysis Comment CULT NOT INDICATED MDM Medical Decision Making Medical Screen Exam Complete: Yes Emergency Medical Condition: Yes Differential Diagnosis Uncontrolled diabetes, DKA, dehydration, UTI, metabolic disturbance Narrative Course The patient has diabetes and was found to have elevated blood sugars. The patient denies any polydipsia/polyuria. The patient has not experience extreme fatigue and irritability. The patient denies any current infections and has no slow healing cuts or bruises. The patient has no clinical findings of concurrent infection or UTI as well. The patient looks great and does not appear ill or dehydrated and is tolerating fluids. There is no clinical evidence to support DKA. The patient was given volume. The patient responded well to this treatment. The hyperglycemia may be due to noncompliance with ADA diet alone but may also be due to poorly controlled diabetes. Regardless the patient is stable, tolerating fluids, hydrated and non ill appearing and may be discharged home with acute follow up with Primary Care physician and undergo outpatient evaluation for possible adjustment of diabetic medication. The patient agreed with plan. Patient in no obvious distress upon re-evaluation. All pertinent laboratory result(s) discussed with patient. Discussed patient with Dr. Hensley prior discharge, who is in agreement with plan of care and disposition. Any questions /concerns in reference to patient diagnosis/condition discussed and clarified prior to patient's discharge. Reinforced sheer importance of close follow up with patient's primary physician or primary care clinic. Instructed patient to return to ED immediately, if symptoms return/worsen. Patient showed understanding of above instructions. Further instructions and recommendations were detailed in discharge paperwork. Patient ambulated without difficulty out of ED at discharge. Diagnosis Primary Impression: Hyperglycemia due to type 2 diabetes mellitus Qualified Codes: E11.65 - Type 2 diabetes mellitus with hyperglycemia Referrals: [facility] Patient Instructions: Diabetes in the Older Adult (DC), General Instructions Additional Instructions: Follow-up with your primary care physician as soon as possible for adjustment of her diabetes medication. Return to the emergency department if symptoms get worse. Disposition: 01 DISCHARGE HOME Condition: Stable Syed Lozano Jul 05, 2017 16:06
[2017-07-05 18:10] LABS: AUTOMATED NEUTROPHIL # 5.3 TH/MM3 (1.8-7.7); BASOPHIL % 0.5 % (0.0-2.0); EOSINOPHIL # 0.1 TH/MM3 (0-0.4); EOSINOPHIL % 1.1 % (0.0-4.0); HEMATOCRIT 41.2 % (35.0-46.0); HEMOGLOBIN 14.1 GM/DL (11.6-15.3); LYMPH % 27.6 % (9.0-44.0); LYMPHOCYTE # 2.3 TH/MM3 (1.0-4.8); MEAN CELL VOLUME 93.1 FL (80.0-100.0); MEAN CORPUSCULAR HEMOGLOBIN 31.8 PG (27.0-34.0); MEAN CORPUSCULAR HGB CONC 34.1 % (32.0-36.0); MONO % 6.2 % (0.0-8.0); MONOCYTE # 0.5 TH/MM3 (0-0.9); NEUT % 64.6 % (16.0-70.0); PLATELET COUNT 351 TH/MM3 (150-450); RED BLOOD COUNT 4.42 MIL/MM3 (4.00-5.30); RED CELL DISTRIBUTION WIDTH 12.5 % (11.6-17.2); WHITE BLOOD COUNT 8.2 TH/MM3 (4.0-11.0)
[2017-07-05 18:17] LABS: LIPASE 147 U/L (73-393)
[2017-07-05 18:52] LABS: ALBUMIN 3.5 GM/DL (3.4-5.0); BLOOD UREA NITROGEN 14 MG/DL (7-18); CHLORIDE 101 MEQ/L (98-107); CREATININE 1.05 MG/DL (0.50-1.00); GLOMERULAR FILTRATION RATE 61 ML/MIN (>89); GLUCOSE,RANDOM 331 MG/DL (74-106); SODIUM (NA) 135 MEQ/L (136-145)
[2017-07-05 18:53] LABS: ALT (GPT) 16 U/L (10-53); AST (GOT) 14 U/L (15-37)
[2017-07-05 18:55] LABS: ALKALINE PHOSPHATASE 63 U/L (45-117); TOTAL BILIRUBIN ADULT 0.7 MG/DL (0.2-1.0); TOTAL PROTEIN 7.8 GM/DL (6.4-8.2)
[2017-07-05 19:39] LABS: BILIRUBIN, URINE NEG (NEG); BLOOD, URINE TRACE (NEG); GLUCOSE,URINE 1000 mg/dL (NEG); KETONE, URINE TRACE mg/dL (NEG); NITRITE,URINE NEG (NEG); PH, URINE 5.5 (5.0-8.5); URINE COLOR LIGHT-YELLOW (YELLW/STRAW); URINE LEUKOCYTE ESTERASE NEG (NEG)
[2017-07-05 21:22] VITALS: BP 197/84; PULSE 66; RESP 16; TEMP 98.8; O2SAT 99
== END 2017-07-05 20:48 | disposition home or self-care (01) ==
LOC: NEPC 15:15
DX: E11.65 Type 2 diabetes mellitus with hyperglycemia (principal); I10 Essential (primary) hypertension; Z79.82 Long term (current) use of aspirin; Z79.899 Other long term (current) drug therapy
CPT/HCPCS: 80053; 81001; 82010; 82805; 83690; 85025; 99283; J7040

== ENCOUNTER 2017-07-21 17:01 | Observation (INO) | payer MEDICAID ==
[~2017-07-21] VITALS: Ht 167.6 cm; Wt 74.0 kg
[2017-07-21 17:21] VITALS: BP 182/73; PULSE 59; RESP 18; TEMP 97.8; O2SAT 98
[2017-07-21 18:04] LABS: BASOPHIL % 0.5 % (0.0-2.0); EOSINOPHIL # 0.1 TH/MM3 (0-0.4); EOSINOPHIL % 1.6 % (0.0-4.0); HEMOGLOBIN 12.5 GM/DL (11.6-15.3); LYMPH % 30.9 % (9.0-44.0); LYMPHOCYTE # 2.6 TH/MM3 (1.0-4.8); MEAN CELL VOLUME 93.6 FL (80.0-100.0); MEAN CORPUSCULAR HEMOGLOBIN 31.5 PG (27.0-34.0); MEAN CORPUSCULAR HGB CONC 33.7 % (32.0-36.0); MEAN PLATELET VOLUME 7.6 FL (7.0-11.0); MONO % 6.4 % (0.0-8.0); MONOCYTE # 0.5 TH/MM3 (0-0.9); NEUT % 60.6 % (16.0-70.0); PLATELET COUNT 362 TH/MM3 (150-450); RED BLOOD COUNT 3.95 MIL/MM3 (4.00-5.30); WHITE BLOOD COUNT 8.3 TH/MM3 (4.0-11.0)
[2017-07-21 18:20] LABS: ALBUMIN 3.3 GM/DL (3.4-5.0); AST (GOT) 14 U/L (15-37); BLOOD UREA NITROGEN 8 MG/DL (7-18); CALCIUM 9.4 MG/DL (8.5-10.1); CHLORIDE 104 MEQ/L (98-107); CREATININE 0.97 MG/DL (0.50-1.00); GLOMERULAR FILTRATION RATE 67 ML/MIN (>89); GLUCOSE,RANDOM 168 MG/DL (74-106); SODIUM (NA) 139 MEQ/L (136-145)
[2017-07-21 18:21] LABS: ALT (GPT) 16 U/L (10-53)
[2017-07-21 18:24] LABS: ALKALINE PHOSPHATASE 52 U/L (45-117); TOTAL BILIRUBIN ADULT 0.9 MG/DL (0.2-1.0); TOTAL PROTEIN 7.1 GM/DL (6.4-8.2)
[2017-07-21] MEDS ORDERED: SODIUM CHLORID 0.9% 500 ML INJ 500 ML IV ONE (18:45)
--- NOTE | 2017-07-21 18:49 | PD ---
HPI Chief Complaint: Syncope/Near-Syncope Time Seen by Provider: 18:04 Travel History International Travel<30 days: No Contact w/Intl Traveler<30days: No Traveled to known affect area: No History of Present Illness HPI 82 year old female brought to ED for evaluation of a syncopal episode this afternoon with an episode of N/V while at the cardiology office. She had been feeling well all day today and while at the cardiology office for check up was noted to have high BP, the senior applications architect gave the patient Clonidine X 2 in office with return of her normal BP. As the patient was exiting the office, she had multiple episodes of N/V and had a witnessed syncopal episode. Denies chest pain, denies fall, denies head trauma, denies pre syncopal symptoms. She states that this has not happened before. Recently complaining of upper abd pain due to GERD. Risk Factors:[None] Modifying Factors:[None] Associated sign and symptoms: Syncope, N/V PFSH Past Medical History Blood Disorders: No Cancer: No Cardiovascular Problems: Yes (HTN) Diabetes: Yes (DMII) Patient Takes Glucophage: No Endocrine: No GERD: Yes Hypertension: Yes Immune Disorder: No Thyroid Disease: No Past Surgical History Surgical History: No Previous Surgery Hysterectomy: Yes Social History Alcohol Use: No Tobacco Use: No Substance Use: No Allergies-Medications (Allergen,Severity, Reaction): Coded Allergies: No Known Allergies (Unverified , 06/30/17) Reported Meds & Prescriptions Reported Meds & Active Scripts Active Aspirin DR (Aspirin) 81 Mg Tabdr 81 Mg PO DAILY Reported Atenolol 50 Mg Tab 50 Mg PO DAILY Glipizide 10 Mg Tab 10 Mg PO BIDAC Take 30 minutes before a meal Metformin (Metformin HCl) 500 Mg Tab 500 Mg PO BIDPC Review of Systems Except as stated in HPI: all other systems reviewed are Neg Physical Exam Narrative GENERAL: Elderly female resting in ED bed, son at bedside, no acute distress. Awake and oriented 3. SKIN: Warm and dry. HEAD: Atraumatic. Normocephalic. EYES: Pupils equal and round. No scleral icterus. No injection or drainage. ENT: No nasal bleeding or discharge. Mucous membranes tachy. NECK: Trachea midline. No JVD. Supple. CARDIOVASCULAR: Regular rate and rhythm. RESPIRATORY: No accessory muscle use. Clear to auscultation. Breath sounds equal bilaterally. GASTROINTESTINAL: Abdomen soft, non-tender, nondistended. Hepatic and splenic margins not palpable. MUSCULOSKELETAL: Extremities without clubbing, cyanosis, or edema. No obvious deformities. NEUROLOGICAL: Awake and alert. No obvious cranial nerve deficits. Motor grossly within normal limits. Five out of 5 muscle strength in the arms and legs. Normal speech. PSYCHIATRIC: Appropriate mood and affect; insight and judgment normal. Data Data Last Documented VS Vital Signs Date Time Temp Pulse Resp B/P (MAP) Pulse Ox O2 Delivery O2 Flow Rate FiO2 07/21/17 17:21 97.8 59 18 182/73 (109) 98 Orders Orders Electrocardiogram (07/21/17 17:24) Complete Blood Count With Diff (07/21/17:24) Comprehensive Metabolic Panel (07/21/17:24) Iv Access Insert/Monitor (07/21/17 17:24) Chest, Single Ap (07/21/17 18:15) Sodium Chlorid 0.9% 500 Ml Inj (Ns 500 M (07/21/17 18:45) Bedside Glucose JIMMY.CSUGAR (07/21/17 19:07) Blood Glucose Goal (Criteria) (07/21/17 19:07) Hypoglycemia 70 Mg/Dl Or < (07/21/17 19:07) Notify Dr: Other (07/21/17:) Dextrose 50% In Nadira (Vial) Inj (D50w (Vi (07/21/17 19:15) Glucagon Inj (Glucagon Inj) (07/21/17 19:15) Insulin Aspart Supplemtl Scale (Novolog (07/21/17 21:00) Place In Observation (07/21/17 ) Vital Signs (Adult) Q4H (07/21/17 19:07) Activity Oob With Assistance (07/21/17 19:07) Flight Simulator Teacher / Telemetry .CONTINUOUS (07/21/17 19:07) Intake + Output JIMMY.QSHIFT (07/21/17 19:07) Diet 1800 Ada Cons Carb (07/22/17 Breakfast) Sodium Chlor 0.9% 1000 Ml Inj (Ns 1000 M (07/21/17 19:07) Sodium Chloride 0.9% Flush (Ns Flush) (07/21/17 19:15) Sodium Chloride 0.9% Flush (Ns Flush) (07/21/17 21:00) Ondansetron Inj (Zofran Inj) (07/21/17 19:15) Comprehensive Metabolic Panel (07/22/17 06:00) Complete Blood Count With Diff (07/22/17 06:00) Troponin I (07/22/17 00:00) Troponin I (07/22/17 06:00) Scd Bilateral/Knee High JIMMY.BID (07/21/17 19:07) Ron Bilateral/Knee High JIMMY.QSHIFT (07/21/17 19:09) Acetaminophen (Tylenol) (07/21/17 19:15) Acetamin-Hydrocod 325-5 Mg ([place] 5-325 (07/21/17 19:15) Acetamin-Hydrocod 325-10 Mg ([place] 10-32 (07/21/17 19:15) Docusate Sodium-Senna (Lesli-Colace) (07/21/17 21:00) Magnesium Hydroxide Liq (Milk Of Magnesi (07/21/17 19:15) Sennosides (Senokot) (07/21/17 19:15) Bisacodyl Supp (Dulcolax Supp) (07/21/17 19:15) Lactulose Liq (Lactulose Liq) (07/21/17 19:15) Echo 2d Comp With Doppler (07/21/17 ) Consult Cardiology (07/21/17 ) Aspirin Ec (Ecotrin Ec) (07/22/17 09:00) Glipizide (Glucotrol) (07/22/17 07:00) Urinalysis - C+S If Indicated (07/21/17 19:10) Admit Order (Ed Use Only) (07/21/17 19:13) Labs Laboratory Tests Test 07/21/17 17:55 White Blood Count 8.3 TH/MM3 Red Blood Count 3.95 MIL/MM3 Hemoglobin 12.5 GM/DL Hematocrit 37.0 % Mean Corpuscular Volume 93.6 FL Mean Corpuscular Hemoglobin 31.5 PG Mean Corpuscular Hemoglobin Concent 33.7 % Red Cell Distribution Width 13.0 % Platelet Count 362 TH/MM3 Mean Platelet Volume 7.6 FL Neutrophils (%) (Auto) 60.6 % Lymphocytes (%) (Auto) 30.9 % Monocytes (%) (Auto) 6.4 % Eosinophils (%) (Auto) 1.6 % Basophils (%) (Auto) 0.5 % Neutrophils # (Auto) 5.0 TH/MM3 Lymphocytes # (Auto) 2.6 TH/MM3 Monocytes # (Auto) 0.5 TH/MM3 Eosinophils # (Auto) 0.1 TH/MM3 Basophils # (Auto) 0.0 TH/MM3 CBC Comment DIFF FINAL Differential Comment Blood Urea Nitrogen 8 MG/DL Creatinine 0.97 MG/DL Random Glucose 168 MG/DL Total Protein 7.1 GM/DL Albumin 3.3 GM/DL Calcium Level 9.4 MG/DL Alkaline Phosphatase 52 U/L Aspartate Amino Transf (AST/SGOT) 14 U/L Alanine Aminotransferase (ALT/SGPT) 16 U/L Total Bilirubin 0.9 MG/DL Sodium Level 139 MEQ/L Potassium Level 3.6 MEQ/L Chloride Level 104 MEQ/L Carbon Dioxide Level 23.0 MEQ/L Anion Gap 12 MEQ/L Estimat Glomerular Filtration Rate 67 ML/MIN [facility] Medical Decision Making Medical Screen Exam Complete: Yes Emergency Medical Condition: Yes Medical Record Reviewed: Yes Interpretation(s) EKG shows sinus bradycardia rate of 50 bpm. No signs of acute ST changes. Laboratory Tests Test 07/21/17 17:55 Red Blood Count 3.95 MIL/MM3 (4.00-5.30) Random Glucose 168 MG/DL (74-106) Albumin 3.3 GM/DL (3.4-5.0) Aspartate Amino Transf (AST/SGOT) 14 U/L (15-37) Estimat Glomerular Filtration Rate 67 ML/MIN (>89) Differential Diagnosis Dysrhythmias versus dehydration versus medication side effect Narrative Course Patient is significantly bradycardic, she is on a beta-alysha and the clonidine may have worsened her symptoms. I do not see any signs of AV block. Her vital signs are otherwise stable in the ER. Lab work did not show significant electrolyte abnormalities. My plan would be to admit her for observation considering syncopal episode. Case was discussed with Dr. Corrigan for admission. Diagnosis Primary Impression: Syncope Additional Impression: Bradycardia Admitting Information Admitting Physician Requests: Admit Rabia Stoner MD Jul 21, 2017 18:49
--- NOTE | 2017-07-21 19:10 | HHI.HP ---
HPI Service [facility] Primary Care Physician Leon Alex MD (Paul) Admission Diagnosis Diagnoses: (1) Syncope Diagnosis: Principal (2) Bradycardia Diagnosis: Principal (3) Dehydration Diagnosis: Principal (4) HTN (hypertension) Diagnosis: Principal (5) DM (diabetes mellitus) Diagnosis: Principal Travel History International Travel<30 Days: No Contact w/Intl Traveler <30 Da: No Traveled to Known Affected Are: No History of Present Illness This is an 82-year-old female with a PMH of HTN, GERD and DM who is brought to the ER or syncopal event. Recent admit 07/01/17 for near syncope w/ abnormal EKG , s/p eval by Dr. Contreras w/ recommendation for ischemic work up. Nuclear Stress 07/01/17 negative for ischemia, low risk, cardiac enzymes negative. Was seen in Dr. Contreras's office today as follow up and noted to have elevated BP 200's systolic, s/p Clonidine PO x2 doses w/ BP 130's. States she was leaving the office and developed nausea/vomiting followed by syncopal event. No head trauma. On arrival, BP 182/73, HR 59, O2 sat 97% on RA, Afebrile. CBC unremarkable. Chemistry essentially unremarkable. CXR with no acute findings. Review of Systems Except as stated in HPI: all other systems reviewed are Neg ROS: 14 point review of systems otherwise negative. Past Family Social History Past Medical History PMH: HTN, GERD and DM Past Surgical History PAST SURGICAL HISTORY: Hysterectomy Allergies: Coded Allergies: No Known Allergies (Unverified , 06/30/17) Family History PAST FAMILY HISTORY: Reviewed. No h/o DM or CAD Social History PAST SOCIAL HISTORY: Negative for alcohol, tobacco or drugs. Physical Exam Vital Signs Vital Signs Date Time Temp Pulse Resp B/P (MAP) Pulse Ox O2 Delivery O2 Flow Rate FiO2 07/21/17 17:21 97.8 59 18 182/73 (109) 98 Physical Exam PE: GENERAL: Very pleasant elderly black female in no acute distress. Son at bedside. HEENT: PERRLA, EOMI. No scleral icterus or conjunctival pallor. No lid lag or facial droop. CARDIOVASCULAR: Regular rate and rhythm. No obvious murmurs to auscultation. No chest tenderness to palpation. RESPIRATORY: No obvious rhonchi or wheezing. Clear to auscultation. Breath sounds equal bilaterally. GASTROINTESTINAL: Abdomen soft, mild epigastric tenderness to palpation, nondistended. BS normal. MUSCULOSKELETAL: Extremities without clubbing, cyanosis, or edema. No obvious deformities. NEUROLOGICAL: Awake, alert and oriented x4. No focal neurologic deficits. Moving both upper and lower extremities spontaneously. Laboratory Laboratory Tests Test 07/21/17 17:55 White Blood Count 8.3 Red Blood Count 3.95 Hemoglobin 12.5 Hematocrit 37.0 Mean Corpuscular Volume 93.6 Mean Corpuscular Hemoglobin 31.5 Mean Corpuscular Hemoglobin Concent 33.7 Red Cell Distribution Width 13.0 Platelet Count 362 Mean Platelet Volume 7.6 Neutrophils (%) (Auto) 60.6 Lymphocytes (%) (Auto) 30.9 Monocytes (%) (Auto) 6.4 Eosinophils (%) (Auto) 1.6 Basophils (%) (Auto) 0.5 Neutrophils # (Auto) 5.0 Lymphocytes # (Auto) 2.6 Monocytes # (Auto) 0.5 Eosinophils # (Auto) 0.1 Basophils # (Auto) 0.0 CBC Comment DIFF FINAL Differential Comment Blood Urea Nitrogen 8 Creatinine 0.97 Random Glucose 168 Total Protein 7.1 Albumin 3.3 Calcium Level 9.4 Alkaline Phosphatase 52 Aspartate Amino Transf (AST/SGOT) 14 Alanine Aminotransferase (ALT/SGPT) 16 Total Bilirubin 0.9 Sodium Level 139 Potassium Level 3.6 Chloride Level 104 Carbon Dioxide Level 23.0 Anion Gap 12 Estimat Glomerular Filtration Rate 67 Result Diagram: 07/21/17 1755 07/21/17 175 Caprini VTE Risk Assessment Caprini VTE Risk Assessment: No/Low Risk (score <= 1) Caprini Risk Assessment Model Point Value = 1 Point Value = 2 Point Value = 3 Point Value = 5 Age 41-60 Minor surgery BMI > 25 kg/m2 Swollen legs Varicose veins or History of unexplained or recurrent spontaneous Oral contraceptives or hormone replacement Sepsis (< 1 month) Serious lung disease, including pneumonia (< 1 month) Abnormal pulmonary function Acute myocardial infarction Congestive heart failure (< 1 month) History of inflammatory bowel disease Medical patient at bed rest Age 61-74 Arthroscopic surgery Major open surgery (> 45 min) Laparoscopic surgery (> 45 min) Malignancy Confined to bed (> 72 hours) Immobilizing plaster cast Central venous access Age >= 75 History of VTE Family history of VTE Factor V Leiden Prothrombin [id number] Lupus anticoagulant Anticardiolipin antibodies Elevated serum homocysteine Heparin-induced thrombocytopenia Other congenital or acquired thrombophilia Stroke (< 1 month) Elective arthroplasty Hip, pelvis, or leg fracture Acute spinal cord injury (< 1 month) Prophylaxis Regimen Total Risk Factor Score Risk Level Prophylaxis Regimen 0-1 Low Early ambulation 2 Moderate Order ONE of the following: *Sequential Compression Device (SCD) *Heparin 5000 units SQ BID 3-4 Higher Order ONE of the following medications: *Heparin 5000 units SQ TID *Enoxaparin/Lovenox 40 mg SQ daily (WT < 150 kg, CrCl > 30 mL/min) *Enoxaparin/Lovenox 30 mg SQ daily (WT < 150 kg, CrCl > 10-29 mL/min) *Enoxaparin/Lovenox 30 mg SQ BID (WT < 150 kg, CrCl > 30 mL/min) AND/OR *Sequential Compression Device (SCD) 5 or more Highest Order ONE of the following medications: *Heparin 5000 units SQ TID (Preferred with Epidurals) *Enoxaparin/Lovenox 40 mg SQ daily (WT < 150 kg, CrCl > 30 mL/min) *Enoxaparin/Lovenox 30 mg SQ daily (WT < 150 kg, CrCl > 10-29 mL/min) *Enoxaparin/Lovenox 30 mg SQ BID (WT < 150 kg, CrCl > 30 mL/min) AND *Sequential Compression Device (SCD) Assessment and Plan Problem List: (1) Syncope ICD Code: R55 - Syncope and collapse Status: Acute (2) Bradycardia ICD Code: R00.1 - Bradycardia, unspecified Status: Acute (3) GERD (gastroesophageal reflux disease) ICD Code: K21.9 - Gastro-esophageal reflux disease without esophagitis (4) HTN (hypertension) ICD Code: I10 - Essential (primary) hypertension (5) Dehydration ICD Code: E86.0 - Dehydration (6) DM (diabetes mellitus) ICD Code: E11.9 - Type 2 diabetes mellitus without complications Assessment and Plan A/P: 1. Syncope: Recurrent. Likely vasovagal event from nausea/vomiting and bradycardia, recent admit for similar w/ no evidence of ischemia, Nuclear Stress negative. Will admit for observation, place on telemetry. Check serial cardiac enzymes to eval for ischemia. IVF for hydration. Consult Dr. Contreras w/ whom she follows for further recommendations. 2. Bradycardia: HR 50's, possibly symptomatic bradycardia causing syncopal events. Echo 07/01/17 w/ EF 60-5%. Hold Atenolol, monitor on telemetry. 3. Dehydration: GFR 67, check U/a for underlying UTI, IVF for hydration, repeat labs in am. 4. HTN: Uncontrolled. BP 180's on arrival, will hold Atenolol in light of bradycardia, monitor BP, antihypertensives as needed for BP >180 5. DM: Sliding scale w/ Accu-cheks. Hold Metformin for possible cardiac intervention. 6. DVT Prophylaxis: SCD/Teds. 7. Social work for d/c planning as needed. 8. Case discussed w/ ER physician at length. labs/records/imaging reviewed by me. Jackie Corrigan MD Jul 21, 2017 19:10
[2017-07-21] MEDS ORDERED: GLUCAGON 1 MG/ML VIAL OTHER PRN (19:15)
[2017-07-21] MEDS ORDERED: SODIUM CHLORIDE 0.9% FLUSH 10 ML FLUSH IV FLUSH PRN (19:15)
[2017-07-21] MEDS ORDERED: ACETAMINOPHEN/HYDROcodone 325 MG/10 MG TAB PO PRN (19:15)
[2017-07-21] MEDS ORDERED: BISACODYL 10 MG SUPP RECTAL PRN (19:15)
[2017-07-21] MEDS ORDERED: LACTULOSE SYRUP 20 GM/30 ML CUP PO PRN (19:15)
[2017-07-21] MEDS ORDERED: ACETAMINOPHEN/HYDROcodone 325 MG/5 MG TAB PO PRN (19:15)
[2017-07-21] MEDS ORDERED: MAGNESIUM HYDROXIDE SUSP 30 ML CUP PO PRN (19:15)
[2017-07-21] MEDS ORDERED: ACETAMINOPHEN 325 MG TAB PO PRN (19:15)
[2017-07-21] MEDS ORDERED: SENNOSIDES 8.6 MG TAB PO PRN (19:15)
[2017-07-21] MEDS ORDERED: ONDANSETRON HCL 4 MG/2 ML VIAL IVP PRN (19:15)
[2017-07-21] MEDS ORDERED: DEXTROSE 50% IN WATER 50 ML VIAL(D50) IV PUSH PRN (19:15)
--- NOTE | 2017-07-21 19:15 | RADRPT ---
EXAM DATE/TIME: 07/21/2017 18:37 [facility] COMPARISON: CHEST SINGLE AP, June 30, 2017, 17:08. INDICATIONS : Palpitations. MEDICAL HISTORY : Hypertension. Diabetes mellitus type 2. SURGICAL HISTORY : Hysterectomy. ENCOUNTER: Initial ACUITY: 1 day PAIN SCORE: 0/10 LOCATION: Bilateral chest FINDINGS: A single view of the chest demonstrates the lungs to be symmetrically aerated without evidence of mas s, infiltrate or effusion. The cardiomediastinal contours are unremarkable. Osseous structures are intact. CONCLUSION: No acute disease. No significant change has occurred. hCandler Dorsey MD on July 21, 2017 at 19:13 Board Certified Radiologist. This report was verified electronically.
[2017-07-21 19:49] VITALS: BP 159/67; PULSE 56; RESP 16; O2SAT 97
[2017-07-21] MEDS ORDERED: FAMOTIDINE 20 MG/2 ML VIAL IV PUSH SCH (21:00)
[2017-07-21] MEDS: SODIUM CHLORIDE 0.9% FLUSH 10 ML FLUSH IV FLUSH SCH (22:19)
[2017-07-21] MEDS: SODIUM CHLOR 0.9% 1000 ML INJ 1,000 ML IV SCH (22:19)
[2017-07-21] MEDS: DOCUSATE SODIUM 50 MG/SENNA 8.6 MG TAB PO SCH (22:19)
[2017-07-21] MEDS: INSULIN ASPART SUPPLEMENTAL SCALE SQ SCH (23:09)
[2017-07-21 23:50] VITALS: PULSE 55
[2017-07-22] VITALS (13 sets, daily range): BP systolic 138–184; BP diastolic 68–81; PULSE 50–72; RESP 16–20; TEMP 97.8–98.5; O2SAT 95–99
[2017-07-22] MEDS: SODIUM CHLOR 0.9% 1000 ML INJ 1,000 ML IV SCH ×2 (08:00→17:41)
[2017-07-22] MEDS: INSULIN ASPART SUPPLEMENTAL SCALE SQ SCH ×4 (08:00→22:11)
[2017-07-22 08:16] LABS: AUTOMATED NEUTROPHIL # 4.5 TH/MM3 (1.8-7.7); BASOPHIL % 0.5 % (0.0-2.0); EOSINOPHIL % 0.7 % (0.0-4.0); HEMATOCRIT 34.1 % (35.0-46.0); HEMOGLOBIN 11.6 GM/DL (11.6-15.3); LYMPH % 27.6 % (9.0-44.0); LYMPHOCYTE # 1.9 TH/MM3 (1.0-4.8); MEAN CELL VOLUME 93.2 FL (80.0-100.0); MEAN CORPUSCULAR HEMOGLOBIN 31.8 PG (27.0-34.0); MEAN CORPUSCULAR HGB CONC 34.1 % (32.0-36.0); MEAN PLATELET VOLUME 7.5 FL (7.0-11.0); MONO % 6.6 % (0.0-8.0); MONOCYTE # 0.5 TH/MM3 (0-0.9); NEUT % 64.6 % (16.0-70.0); PLATELET COUNT 342 TH/MM3 (150-450); RED BLOOD COUNT 3.66 MIL/MM3 (4.00-5.30); RED CELL DISTRIBUTION WIDTH 12.9 % (11.6-17.2); WHITE BLOOD COUNT 6.9 TH/MM3 (4.0-11.0)
[2017-07-22 08:47] LABS: ALBUMIN 2.9 GM/DL (3.4-5.0); AST (GOT) 14 U/L (15-37); BICARBONATE 24.4 MEQ/L (21.0-32.0); BLOOD UREA NITROGEN 7 MG/DL (7-18); CALCIUM 8.6 MG/DL (8.5-10.1); CHLORIDE 110 MEQ/L (98-107); CREATININE 0.72 MG/DL (0.50-1.00); GLOMERULAR FILTRATION RATE 94 ML/MIN (>89); GLUCOSE,RANDOM 103 MG/DL (74-106); SODIUM (NA) 142 MEQ/L (136-145)
[2017-07-22 08:48] LABS: ALKALINE PHOSPHATASE 46 U/L (45-117); ALT (GPT) 15 U/L (10-53); TOTAL BILIRUBIN ADULT 0.9 MG/DL (0.2-1.0); TOTAL PROTEIN 6.4 GM/DL (6.4-8.2); TROPONIN I 0.12 NG/ML (0.02-0.05)
[2017-07-22] MEDS: SODIUM CHLORIDE 0.9% FLUSH 10 ML FLUSH IV FLUSH SCH ×2 (09:00→21:00)
[2017-07-22] MEDS: glipiZIDE 10 MG TAB PO SCH ×2 (09:07→17:39)
[2017-07-22] MEDS: ASPIRIN EC 81 MG TABEC PO SCH (09:07)
[2017-07-22] MEDS: DOCUSATE SODIUM 50 MG/SENNA 8.6 MG TAB PO SCH ×2 (09:07→21:30)
[2017-07-22] MEDS: FAMOTIDINE 20 MG/2 ML VIAL IV PUSH SCH ×2 (09:08→21:31)
--- NOTE | 2017-07-22 11:11 | HHI.PR ---
Subjective Remarks This is an 82-year-old female with a PMH of HTN, GERD and DM who is brought to the ER or syncopal event. Recent admit 07/01/17 for near syncope w/ abnormal EKG , s/p eval by Dr. Contreras w/ recommendation for ischemic work up. Nuclear Stress 07/01/17 negative for ischemia, low risk, cardiac enzymes negative. Was seen in Dr. Contreras's office today as follow up and noted to have elevated BP 200's systolic, s/p Clonidine PO x2 doses w/ BP 130's. States she was leaving the office and developed nausea/vomiting followed by syncopal event. No head trauma. On arrival, BP 182/73, HR 59, O2 sat 97% on RA, Afebrile. CBC unremarkable. Chemistry essentially unremarkable. CXR with no acute findings. 2-10 had a near syncopal episode. Await cardiology evaluation Near syncopal episode may have been due to the clonidine lowering her blood pressure quickly And or vasovagal Await cardiology evaluations discussed with patient and RN Objective Vitals Vital Signs Date Time Temp Pulse Resp B/P (MAP) Pulse Ox O2 Delivery O2 Flow Rate FiO2 07/22/17 04:30 51 07/22/17 04:00 97.9 68 16 138/78 (98) 95 07/22/17 01:40 53 07/22/17 00:00 98.4 68 18 147/78 (101) 98 07/21/17 23:50 55 07/21/17 20:34 07/21/17 19:49 56 16 159/67 (97) 97 Room Air 07/21/17 17:21 97.8 59 18 182/73 (109) 98 I/O 07/21/17 07/21/17 07/21/17 07/22/17 07/22/17 07/22/17 07:00 15:00 23:00 07:00 15:00 23:00 Intake Total 480 ml Balance 480 ml Intake IV Total 480 ml Result Diagram: 07/22/17 0700 07/22/17 0700 Other Results Laboratory Tests Test 07/21/17 17:55 07/22/17 01:32 07/22/17 07:00 White Blood Count 8.3 TH/MM3 6.9 TH/MM3 Red Blood Count 3.95 MIL/MM3 3.66 MIL/MM3 Hemoglobin 12.5 GM/DL 11.6 GM/DL Hematocrit 37.0 % 34.1 % Mean Corpuscular Volume 93.6 FL 93.2 FL Mean Corpuscular Hemoglobin 31.5 PG 31.8 PG Mean Corpuscular Hemoglobin Concent 33.7 % 34.1 % Red Cell Distribution Width 13.0 % 12.9 % Platelet Count 362 TH/MM3 342 TH/MM3 Mean Platelet Volume 7.6 FL 7.5 FL Neutrophils (%) (Auto) 60.6 % 64.6 % Lymphocytes (%) (Auto) 30.9 % 27.6 % Monocytes (%) (Auto) 6.4 % 6.6 % Eosinophils (%) (Auto) 1.6 % 0.7 % Basophils (%) (Auto) 0.5 % 0.5 % Neutrophils # (Auto) 5.0 TH/MM3 4.5 TH/MM3 Lymphocytes # (Auto) 2.6 TH/MM3 1.9 TH/MM3 Monocytes # (Auto) 0.5 TH/MM3 0.5 TH/MM3 Eosinophils # (Auto) 0.1 TH/MM3 0.0 TH/MM3 Basophils # (Auto) 0.0 TH/MM3 0.0 TH/MM3 CBC Comment DIFF FINAL DIFF FINAL Differential Comment Blood Urea Nitrogen 8 MG/DL 7 MG/DL Creatinine 0.97 MG/DL 0.72 MG/DL Random Glucose 168 MG/DL 103 MG/DL Total Protein 7.1 GM/DL 6.4 GM/DL Albumin 3.3 GM/DL 2.9 GM/DL Calcium Level 9.4 MG/DL 8.6 MG/DL Alkaline Phosphatase 52 U/L 46 U/L Aspartate Amino Transf (AST/SGOT) 14 U/L 14 U/L Alanine Aminotransferase (ALT/SGPT) 16 U/L 15 U/L Total Bilirubin 0.9 MG/DL 0.9 MG/DL Sodium Level 139 MEQ/L 142 MEQ/L Potassium Level 3.6 MEQ/L 3.6 MEQ/L Chloride Level 104 MEQ/L 110 MEQ/L Carbon Dioxide Level 23.0 MEQ/L 24.4 MEQ/L Anion Gap 12 MEQ/L 8 MEQ/L Estimat Glomerular Filtration Rate 67 ML/MIN 94 ML/MIN Troponin I 0.13 NG/ML 0.12 NG/ML Imaging Last Impressions Chest X-Ray 07/21/171814 Signed Impressions: Service Date/Time: Friday, July 21, 2017 18:37 - CONCLUSION: No acute disease. No significant change has occurred. Chandler Dorsey MD Objective Remarks GENERAL: Awake alert oriented talkative and cooperative SKIN: Warm and dry. HEAD: Atraumatic. Normocephalic. EYES: Pupils equal and round. No scleral icterus. No injection or drainage. Extraocular muscles intact ENT: No nasal bleeding or discharge. Mucous membranes pink and moist. Tongue is midline NECK: Trachea midline. No JVD. Supple CARDIOVASCULAR: Regular rate and rhythm. S1 and S2 no S3 or S4 RESPIRATORY: No accessory muscle use. Clear to auscultation. Breath sounds equal bilaterally. GASTROINTESTINAL: Abdomen soft, non-tender, nondistended. Hepatic and splenic margins not palpable. MUSCULOSKELETAL: Extremities without clubbing, cyanosis, or edema. No obvious deformities. NEUROLOGICAL: Awake and alert. No obvious cranial nerve deficits. Motor grossly within normal limits. Five out of 5 muscle strength in the arms and legs. Normal speech. PSYCHIATRIC: Appropriate mood and affect; insight and judgment normal. Medications and IVs Current Medications Sodium Chloride 500 ml @ 500 mls/hr BOLUS ONCE IV Last administered on at 19:51; Start 07/21/17 at 18:45; Stop 07/21/17 at 19:44; Status DC Dextrose (D50w (Vial) Inj) 50 ml UNSCH PRN IV PUSH HYPOGLYCEMIA-SEE COMMENTS; Start 07/21/17 at 19:15 Glucagon (Glucagon Inj) 1 mg UNSCH PRN OTHER HYPOGLYCEMIA-SEE COMMENTS; Start 07/21/17 at 19:15 Insulin Aspart (NovoLOG SUPPLEMENTAL SCALE) 1 ACHS SLIDING SCALE SQ Last administered on 07/21/17at 23:09; Start 07/21/17 at 21:00 Sodium Chloride 1,000 ml @ 100 mls/hr Q10H IV Last administered on 07/22/17at 08:00; Start 07/21/17 at 20:00 Sodium Chloride (NS Flush) 2 ml UNSCH PRN IV FLUSH FLUSH AFTER USING IV ACCESS ; Start 07/21/17 at 19:15 Sodium Chloride (NS Flush) 2 ml BID IV FLUSH Last administered on 07/21/17at 22: 19; Start 07/21/17 at 21:00 Ondansetron HCl (Zofran Inj) 4 mg Q6H PRN IVP NAUSEA OR VOMITING; Start at 19:15 Acetaminophen (Tylenol) 650 mg Q6H PRN PO FEVER/PAIN SCALE 1 TO 2; Start at 19:15 Acetaminophen/ Hydrocodone Bitart ([place] 5-325 Mg) 1 tab Q4H PRN PO PAIN SCALE 3 TO 5; Start 07/21/17 at 19:15 Acetaminophen/ Hydrocodone Bitart ([place] 10-325 Mg) 1 tab Q4H PRN PO PAIN SCALE 6 TO 10; Start 07/21/17 at 19:15 Senna/Docusate Sodium (Lesli-Colace) 1 tab BID PO Last administered on at 09:07; Start 07/21/17 at 21:00 Magnesium Hydroxide (Milk Of Magnesia Liq) 30 ml Q12H PRN PO Mild constipation ; Start 07/21/17 at 19:15 Sennosides (Senokot) 17.2 mg Q12H PRN PO Moderate constipation; Start 07/21/17 at 19:15 Bisacodyl (Dulcolax Supp) 10 mg DAILY PRN RECTAL SEVERE CONSITIPATION; Start at 19:15 Lactulose (Lactulose Liq) 30 ml DAILY PRN PO SEVERE CONSITIPATION; Start at 19:15 Aspirin (Ecotrin Ec) 81 mg DAILY PO Last administered on 07/22/17at 09:07; Start 07/22/17 at 09:00 Glipizide (Glucotrol) 10 mg BIDAC PO Last administered on 07/22/17at 09:07; Start 07/22/17 at 07:00 Famotidine (Pepcid Inj) 20 mg Q12H IV PUSH Last administered on 07/21/17at 22:19 ; Start 07/21/17 at 21:00; Stop 07/22/17 at 08:44; Status DC Famotidine (Pepcid Inj) 10 mg Q12H IV PUSH Last administered on 07/22/17at 09:08 ; Start 07/22/17 at 09:00 A/P Problem List: (1) Syncope ICD Code: R55 - Syncope and collapse Status: Acute (2) Bradycardia ICD Code: R00.1 - Bradycardia, unspecified Status: Acute (3) GERD (gastroesophageal reflux disease) ICD Code: K21.9 - Gastro-esophageal reflux disease without esophagitis (4) HTN (hypertension) ICD Code: I10 - Essential (primary) hypertension (5) Dehydration ICD Code: E86.0 - Dehydration (6) DM (diabetes mellitus) ICD Code: E11.9 - Type 2 diabetes mellitus without complications Assessment and Plan 1. Syncope: Recurrent. Likely vasovagal event from nausea/vomiting and bradycardia, recent admit for similar w/ no evidence of ischemia, Nuclear Stress negative. Will admit for observation, place on telemetry. Check serial cardiac enzymes to eval for ischemia. IVF for hydration. Consult Dr. Contreras w/ whom she follows for further recommendations. 2. Bradycardia: HR 50's, possibly symptomatic bradycardia causing syncopal events. Echo 07/01/17 w/ EF 60-5%. Hold Atenolol, monitor on telemetry. 3. Dehydration: GFR 67, check U/a for underlying UTI, IVF for hydration, repeat labs in am. 4. HTN: Uncontrolled. BP 180's on arrival, will hold Atenolol in light of bradycardia, monitor BP, antihypertensives as needed for BP >180 better controlled now 5. DM: Sliding scale w/ Accu-cheks. Hold Metformin for possible cardiac intervention. 6. DVT Prophylaxis: SCD/Teds. 7. Social work for d/c planning as needed. Await cardiac evaluation depending on what they say will determine whether she is able to be discharged or not later today Thierno Pugh DO Jul 22, 2017 11:11
[2017-07-22] MEDS: amLODIPine BESYLATE 5 MG TAB PO SCH (18:35)
--- NOTE | 2017-07-22 19:16 | MB ---
cc: HARPER MOBLEY M.D. DATE OF CONSULTATION: 07/22/2017. REASON FOR CONSULTATION: Syncopal episode. HISTORY OF PRESENT ILLNESS: Mrs. Mason is an 82-year-old female with history of high blood pressure and diabetes mellitus seen by Dr. Contreras uncontrolled high blood pressure, syncopal episode, admitted due to nausea and bradycardia. During hospitalization, her heart rate was controlled. Her blood pressure continued to be high. I was consulted for evaluation and management. The chart was reviewed. The patient was evaluated. ALLERGIES: None. SOCIAL HISTORY: Negative for smoking and drinking. FAMILY HISTORY: Noncontributory to her current medical condition. MEDICATIONS: Patient is currently on: 1. Mallie. 2. Aspirin 81 milligrams a day. 3. Famotidine. 4. Glipizide 10 milligrams a day. 5. Reglan. REVIEW OF SYSTEMS: She refers no chest pain or chest discomfort since no shortness of breath. No fever. PHYSICAL EXAMINATION: GENERAL: Alert, fully oriented. VITAL SIGNS: Her blood pressure is high at 162/68 and 184/77, pulse 72, respiratory rate 18. LUNGS: Ventilated. CARDIOVASCULAR: S1-S2. No gallop. No murmur. ABDOMEN: Abdomen soft, no mass. No bruits. EXTREMITIES: No edema. ELECTROCARDIOGRAM: EKG indicates sinus rhythm and diffuse S-T changes. LABS: Hemoglobin is 11.6, white blood cells 6.9. Potassium 3.6. Creatinine 0.72. Troponin is 0.12. ASSESSMENT AND RECOMMENDATIONS: Mrs. Mason apparently had an episode of high blood pressure and near-syncope. Her heart rate is okay. Blood pressure continues to be high. Her medications are going to be evaluated. I am going to add Norvasc 5 milligrams with the first dose now. Apparently there is a stress test at the office by Dr. Contreras that was negative. I also reviewed her echocardiogram. For now, will continue on the management. Blood pressure needs to be controlled. The patient is in telemetry. Her heart rate will be monitored. MD DAVID Salamanca/SILVESTRE /6:08 PM /7:01 PM
[2017-07-22] MEDS: ENALAPRILAT 1.25 MG/ML VIAL IV PUSH PRN (22:10)
--- NOTE | 2017-07-22 23:53 | EKG ---
Date Performed: 07/21/2017 Time Performed: 17:42:28 PTAGE: 82 years EKG: SINUS BRADYCARDIA WITH SHORT OK INTERVAL MODERATE T-WAVE ABNORMALITY, CONSIDER ANTEROLATERA L ISCHEMIA ABNORMAL ECG PREVIOUS TRACING : 06/30/2017 17.19 Since the prior tracing, there has been no significant lucas DOCTOR: Steven Jimenez Interpretating Date/Time 07/22/2017 23:52:02
[2017-07-23] VITALS (8 sets, daily range): BP systolic 148–194; BP diastolic 68–85; PULSE 55–65; RESP 16–20; TEMP 97.9–98.2; O2SAT 96–98
[2017-07-23] MEDS: SODIUM CHLOR 0.9% 1000 ML INJ 1,000 ML IV SCH (00:37)
[2017-07-23] MEDS: ENALAPRILAT 1.25 MG/ML VIAL IV PUSH PRN (05:04)
[2017-07-23] MEDS ORDERED: amLODIPine BESYLATE 5 MG TAB PO ONE (06:45)
[2017-07-23] MEDS: INSULIN ASPART SUPPLEMENTAL SCALE SQ SCH ×2 (08:00→13:31)
[2017-07-23] MEDS: glipiZIDE 10 MG TAB PO SCH (08:41)
[2017-07-23] MEDS: SODIUM CHLORIDE 0.9% FLUSH 10 ML FLUSH IV FLUSH SCH (08:41)
[2017-07-23] MEDS: amLODIPine BESYLATE 5 MG TAB PO SCH (08:41)
[2017-07-23] MEDS: ASPIRIN EC 81 MG TABEC PO SCH (08:41)
[2017-07-23] MEDS: DOCUSATE SODIUM 50 MG/SENNA 8.6 MG TAB PO SCH (08:41)
[2017-07-23] MEDS: FAMOTIDINE 20 MG/2 ML VIAL IV PUSH SCH (08:42)
[2017-07-23 09:01] LABS: AUTOMATED NEUTROPHIL # 4.4 TH/MM3 (1.8-7.7); BASOPHIL % 0.6 % (0.0-2.0); EOSINOPHIL # 0.2 TH/MM3 (0-0.4); EOSINOPHIL % 2.6 % (0.0-4.0); HEMATOCRIT 35.8 % (35.0-46.0); HEMOGLOBIN 12.3 GM/DL (11.6-15.3); LYMPH % 26.4 % (9.0-44.0); LYMPHOCYTE # 1.8 TH/MM3 (1.0-4.8); MEAN CELL VOLUME 94.3 FL (80.0-100.0); MEAN CORPUSCULAR HEMOGLOBIN 32.4 PG (27.0-34.0); MEAN CORPUSCULAR HGB CONC 34.4 % (32.0-36.0); MEAN PLATELET VOLUME 7.3 FL (7.0-11.0); MONO % 6.5 % (0.0-8.0); MONOCYTE # 0.5 TH/MM3 (0-0.9); NEUT % 63.9 % (16.0-70.0); PLATELET COUNT 329 TH/MM3 (150-450); WHITE BLOOD COUNT 6.9 TH/MM3 (4.0-11.0)
[2017-07-23 09:23] LABS: AST (GOT) 15 U/L (15-37); BICARBONATE 24.4 MEQ/L (21.0-32.0); BLOOD UREA NITROGEN 8 MG/DL (7-18); CALCIUM 8.7 MG/DL (8.5-10.1); CHLORIDE 109 MEQ/L (98-107); CREATININE 0.83 MG/DL (0.50-1.00); GLOMERULAR FILTRATION RATE 80 ML/MIN (>89); GLUCOSE,RANDOM 161 MG/DL (74-106); MAGNESIUM 1.9 MG/DL (1.5-2.5); SODIUM (NA) 141 MEQ/L (136-145)
[2017-07-23 09:24] LABS: ALT (GPT) 14 U/L (10-53); PHOSPHORUS 2.3 MG/DL (2.5-4.9)
[2017-07-23 09:32] LABS: ALKALINE PHOSPHATASE 50 U/L (45-117); FREE T4 1.25 NG/DL (0.76-1.46); TOTAL BILIRUBIN ADULT 0.9 MG/DL (0.2-1.0); TOTAL PROTEIN 6.6 GM/DL (6.4-8.2)
--- NOTE | 2017-07-23 10:07 | HHI.PR ---
Subjective Remarks This is an 82-year-old female with a PMH of HTN, GERD and DM who is brought to the ER or syncopal event. Recent admit 07/01/17 for near syncope w/ abnormal EKG , s/p eval by Dr. Contreras w/ recommendation for ischemic work up. Nuclear Stress 07/01/17 negative for ischemia, low risk, cardiac enzymes negative. Was seen in Dr. Contreras's office today as follow up and noted to have elevated BP 200's systolic, s/p Clonidine PO x2 doses w/ BP 130's. States she was leaving the office and developed nausea/vomiting followed by syncopal event. No head trauma. On arrival, BP 182/73, HR 59, O2 sat 97% on RA, Afebrile. CBC unremarkable. Chemistry essentially unremarkable. CXR with no acute findings. 2-10 had a near syncopal episode. Await cardiology evaluation Near syncopal episode may have been due to the clonidine lowering her blood pressure quickly And or vasovagal Await cardiology evaluations discussed with patient and RN 2-11 SEEN BY CARDIOLOGY LAST NIGHT STARTED ON NORVASC HAD BUMPED HER TROPONINS ON ADMISSION BLOOD PRESSURE NOT AT GOAL THIS TIME YET INCREASE NORVASC TO 5MG BID AND STOP FLUIDS IF BLOOD PRESSURE IS BETTER THEN DC TO HOME LATER TODAY DID WELL WITH PT BLOOD PRESSURE IS IMPROVED WILL DC TO HOME TODAY FOLLOW UP WITH CARDIOLOGY AND PCP Objective Vitals Vital Signs Date Time Temp Pulse Resp B/P (MAP) Pulse Ox O2 Delivery O2 Flow Rate FiO2 07/23/17 08:46 178/78 (111) 07/23/17 08:13 97.9 60 20 187/78 (114) 96 07/23/17 06:16 187/83 (117) 07/23/17 06:15 65 16 194/81 (118) 97 07/23/17 04:50 98.1 61 18 185/85 (118) 97 07/23/17 04:02 57 07/22/17 23:57 51 07/22/17 23:01 97.8 54 18 168/75 (106) 98 07/22/17 21:25 182/79 (113) 07/22/17 20:08 67 07/22/17 19:50 98.5 59 18 183/81 (115) 99 07/22/17 15:38 98.2 72 20 162/68 (99) 96 07/22/17 12:51 98.2 60 20 184/76 (112) 96 07/22/17 12:10 50 I/O 07/22/17 07/22/17 07/22/17 07/23/17 07/23/17 07/23/17 07:00 15:00 23:00 07:00 15:00 23:00 # Voids 2 Result Diagram: 07/23/17 0736 07/23/17 0736 Other Results Laboratory Tests Test 07/21/17 17:55 07/22/17 01:32 07/22/17 07:00 07/23/17 07:36 White Blood Count 8.3 TH/MM3 6.9 TH/MM3 6.9 TH/MM3 Red Blood Count 3.95 MIL/MM3 3.66 MIL/MM3 3.80 MIL/MM3 Hemoglobin 12.5 GM/DL 11.6 GM/DL 12.3 GM/DL Hematocrit 37.0 % 34.1 % 35.8 % Mean Corpuscular Volume 93.6 FL 93.2 FL 94.3 FL Mean Corpuscular Hemoglobin 31.5 PG 31.8 PG 32.4 PG Mean Corpuscular Hemoglobin Concent 33.7 % 34.1 % 34.4 % Red Cell Distribution Width 13.0 % 12.9 % 13.0 % Platelet Count 362 TH/MM3 342 TH/MM3 329 TH/MM3 Mean Platelet Volume 7.6 FL 7.5 FL 7.3 FL Neutrophils (%) (Auto) 60.6 % 64.6 % 63.9 % Lymphocytes (%) (Auto) 30.9 % 27.6 % 26.4 % Monocytes (%) (Auto) 6.4 % 6.6 % 6.5 % Eosinophils (%) (Auto) 1.6 % 0.7 % 2.6 % Basophils (%) (Auto) 0.5 % 0.5 % 0.6 % Neutrophils # (Auto) 5.0 TH/MM3 4.5 TH/MM3 4.4 TH/MM3 Lymphocytes # (Auto) 2.6 TH/MM3 1.9 TH/MM3 1.8 TH/MM3 Monocytes # (Auto) 0.5 TH/MM3 0.5 TH/MM3 0.5 TH/MM3 Eosinophils # (Auto) 0.1 TH/MM3 0.0 TH/MM3 0.2 TH/MM3 Basophils # (Auto) 0.0 TH/MM3 0.0 TH/MM3 0.0 TH/MM3 CBC Comment DIFF FINAL DIFF FINAL DIFF FINAL Differential Comment Blood Urea Nitrogen 8 MG/DL 7 MG/DL 8 MG/DL Creatinine 0.97 MG/DL 0.72 MG/DL 0.83 MG/DL Random Glucose 168 MG/DL 103 MG/DL 161 MG/DL Total Protein 7.1 GM/DL 6.4 GM/DL 6.6 GM/DL Albumin 3.3 GM/DL 2.9 GM/DL 3.0 GM/DL Calcium Level 9.4 MG/DL 8.6 MG/DL 8.7 MG/DL Alkaline Phosphatase 52 U/L 46 U/L 50 U/L Aspartate Amino Transf (AST/SGOT) 14 U/L 14 U/L 15 U/L Alanine Aminotransferase (ALT/SGPT) 16 U/L 15 U/L 14 U/L Total Bilirubin 0.9 MG/DL 0.9 MG/DL 0.9 MG/DL Sodium Level 139 MEQ/L 142 MEQ/L 141 MEQ/L Potassium Level 3.6 MEQ/L 3.6 MEQ/L 3.0 MEQ/L Chloride Level 104 MEQ/L 110 MEQ/L 109 MEQ/L Carbon Dioxide Level 23.0 MEQ/L 24.4 MEQ/L 24.4 MEQ/L Anion Gap 12 MEQ/L 8 MEQ/L 8 MEQ/L Estimat Glomerular Filtration Rate 67 ML/MIN 94 ML/MIN 80 ML/MIN Troponin I 0.13 NG/ML 0.12 NG/ML Phosphorus Level 2.3 MG/DL Magnesium Level 1.9 MG/DL Free Thyroxine 1.25 NG/DL Thyroid Stimulating Hormone 3rd Gen 2.690 uIU/ML Imaging Last Impressions Chest X-Ray 07/21/17 1815 Signed Impressions: Service Date/Time: Friday, July 21, 2017 18:37 - CONCLUSION: No acute disease. No significant change has occurred. Chandler Dorsey MD Objective Remarks GENERAL: Awake alert oriented talkative and cooperative SKIN: Warm and dry. HEAD: Atraumatic. Normocephalic. EYES: Pupils equal and round. No scleral icterus. No injection or drainage. Extraocular muscles intact ENT: No nasal bleeding or discharge. Mucous membranes pink and moist. Tongue is midline NECK: Trachea midline. No JVD. Supple CARDIOVASCULAR: Regular rate and rhythm. S1 and S2 no S3 or S4 RESPIRATORY: No accessory muscle use. Clear to auscultation. Breath sounds equal bilaterally. GASTROINTESTINAL: Abdomen soft, non-tender, nondistended. Hepatic and splenic margins not palpable. MUSCULOSKELETAL: Extremities without clubbing, cyanosis, or edema. No obvious deformities. NEUROLOGICAL: Awake and alert. No obvious cranial nerve deficits. Motor grossly within normal limits. Five out of 5 muscle strength in the arms and legs. Normal speech. PSYCHIATRIC: Appropriate mood and affect; insight and judgment normal. Procedures NONE Medications and IVs Current Medications Sodium Chloride 500 ml @ 500 mls/hr BOLUS ONCE IV Last administered on at 19:51; Start 07/21/17 at 18:45; Stop 07/21/17 at 19:44; Status DC Dextrose (D50w (Vial) Inj) 50 ml UNSCH PRN IV PUSH HYPOGLYCEMIA-SEE COMMENTS; Start 07/21/17 at 19:15 Glucagon (Glucagon Inj) 1 mg UNSCH PRN OTHER HYPOGLYCEMIA-SEE COMMENTS; Start 07/21/17 at 19:15 Insulin Aspart (NovoLOG SUPPLEMENTAL SCALE) 1 ACHS SLIDING SCALE SQ Last administered on 07/23/17at 08:00; Start 07/21/17 at 21:00 Sodium Chloride 1,000 ml @ 100 mls/hr Q10H IV Last administered on 07/23/17at 00:37; Start 07/21/17 at 20:00 Sodium Chloride (NS Flush) 2 ml UNSCH PRN IV FLUSH FLUSH AFTER USING IV ACCESS ; Start 07/21/17 at 19:15 Sodium Chloride (NS Flush) 2 ml BID IV FLUSH Last administered on 07/23/17at 08: 41; Start 07/21/17 at 21:00 Ondansetron HCl (Zofran Inj) 4 mg Q6H PRN IVP NAUSEA OR VOMITING; Start at 19:15 Acetaminophen (Tylenol) 650 mg Q6H PRN PO FEVER/PAIN SCALE 1 TO 2; Start at 19:15 Acetaminophen/ Hydrocodone Bitart (Keystone 5-325 Mg) 1 tab Q4H PRN PO PAIN SCALE 3 TO 5; Start 07/21/17 at 19:15 Acetaminophen/ Hydrocodone Bitart (Keystone 10-325 Mg) 1 tab Q4H PRN PO PAIN SCALE 6 TO 10; Start 07/21/17 at 19:15 Senna/Docusate Sodium (Lesli-Colace) 1 tab BID PO Last administered on at 08:41; Start 07/21/17 at 21:00 Magnesium Hydroxide (Milk Of Magnesia Liq) 30 ml Q12H PRN PO Mild constipation ; Start 07/21/17 at 19:15 Sennosides (Senokot) 17.2 mg Q12H PRN PO Moderate constipation; Start 07/21/17 at 19:15 Bisacodyl (Dulcolax Supp) 10 mg DAILY PRN RECTAL SEVERE CONSITIPATION; Start at 19:15 Lactulose (Lactulose Liq) 30 ml DAILY PRN PO SEVERE CONSITIPATION; Start at 19:15 Aspirin (Ecotrin Ec) 81 mg DAILY PO Last administered on 07/23/17at 08:41; Start 07/22/17 at 09:00 Glipizide (Glucotrol) 10 mg BIDAC PO Last administered on 07/23/17at 08:41; Start 07/22/17 at 07:00 Famotidine (Pepcid Inj) 20 mg Q12H IV PUSH Last administered on 07/21/17at 22:19 ; Start 07/21/17 at 21:00; Stop 07/22/17 at 08:44; Status DC Famotidine (Pepcid Inj) 10 mg Q12H IV PUSH Last administered on 07/23/17at 08:42 ; Start 07/22/17 at 09:00 Amlodipine Besylate (Norvasc) 5 mg DAILY PO Last administered on 07/23/17at 08: 41; Start 07/22/17 at 18:15 Enalaprilat (Vasotec Inj) 2.5 mg Q6H PRN IV PUSH SEE LABEL COMMENTS Last administered on 07/23/17at 05:04; Start 07/22/17 at 21:45 Amlodipine Besylate (Norvasc) 5 mg ONCE ONCE PO Last administered on at 06:56; Start 07/23/17 at 06:45; Stop 07/23/17 at 06:46; Status DC A/P Problem List: (1) Syncope ICD Code: R55 - Syncope and collapse Status: Acute (2) Bradycardia ICD Code: R00.1 - Bradycardia, unspecified Status: Acute (3) GERD (gastroesophageal reflux disease) ICD Code: K21.9 - Gastro-esophageal reflux disease without esophagitis (4) HTN (hypertension) ICD Code: I10 - Essential (primary) hypertension (5) Dehydration ICD Code: E86.0 - Dehydration (6) DM (diabetes mellitus) ICD Code: E11.9 - Type 2 diabetes mellitus without complications Assessment and Plan 1. Syncope: Recurrent. Likely vasovagal event from nausea/vomiting and bradycardia, recent admit for similar w/ no evidence of ischemia, Nuclear Stress negative. Will admit for observation, place on telemetry. Check serial cardiac enzymes to eval for ischemia. IVF for hydration. Consult Dr. Contreras w/ whom she follows for further recommendations. 2. Bradycardia: HR 50's, possibly symptomatic bradycardia causing syncopal events. Echo 07/01/17 w/ EF 60-5%. Hold Atenolol, monitor on telemetry. 3. Dehydration: GFR 67, check U/a for underlying UTI, IVF for hydration, repeat labs in am. 4. HTN: Uncontrolled. BP 180's on arrival, will hold Atenolol in light of bradycardia, monitor BP, antihypertensives as needed for BP >180 better controlled now STARTED ON NORVASC 5MG INCREASE TO 5MG BID HYPOKALEMIA- WILL GIVE KCL [address] 5. DM: Sliding scale w/ Accu-cheks. Hold Metformin for possible cardiac intervention. 6. DVT Prophylaxis: SCD/Teds. 7. Social work for d/c planning as needed. Await cardiac evaluation depending on what they say will determine whether she is able to be discharged or not later today HOME LATER TODAY BUT NOT ON ATENOLOL Discharge Planning DC LATER TODAY Thierno Pugh DO Jul 23, 2017 10:07
[2017-07-23 10:36] LABS: TROPONIN I 0.08 NG/ML (0.02-0.05)
[2017-07-23] MEDS ORDERED: POTASSIUM CHLORIDE 20 MEQ CONTROLLED RELEASE TAB PO ONE (10:45)
[2017-07-23] MEDS ORDERED: GLIP10TA6 PO (12:21)
[2017-07-23] MEDS ORDERED: METF1000 PO (12:21)
[2017-07-23] MEDS ORDERED: AMLO5 PO (12:21)
--- NOTE | 2017-07-23 12:24 | HHI.DS ---
Discharge Summary Admission Date Jul 21, 2017 at 19:15 Discharge Date: Jul 23, 2017 Admitting Diagnosis SYNCOPE/NEAR SYNCOPE (1) Syncope ICD Code: R55 - Syncope and collapse Diagnosis: Principal Status: Acute (2) Bradycardia ICD Code: R00.1 - Bradycardia, unspecified Diagnosis: Principal Status: Acute (3) GERD (gastroesophageal reflux disease) ICD Code: K21.9 - Gastro-esophageal reflux disease without esophagitis (4) HTN (hypertension) ICD Code: I10 - Essential (primary) hypertension Diagnosis: Secondary (5) Dehydration ICD Code: E86.0 - Dehydration Diagnosis: Secondary (6) DM (diabetes mellitus) ICD Code: E11.9 - Type 2 diabetes mellitus without complications Diagnosis: Secondary Procedures NONE Brief History - From Admission This is an 82-year-old female with a PMH of HTN, GERD and DM who is brought to the ER or syncopal event. Recent admit 07/01/17 for near syncope w/ abnormal EKG , s/p eval by Dr. Contreras w/ recommendation for ischemic work up. Nuclear Stress 07/01/17 negative for ischemia, low risk, cardiac enzymes negative. Was seen in Dr. Contreras's office today as follow up and noted to have elevated BP 200's systolic, s/p Clonidine PO x2 doses w/ BP 130's. States she was leaving the office and developed nausea/vomiting followed by syncopal event. No head trauma. On arrival, BP 182/73, HR 59, O2 sat 97% on RA, Afebrile. CBC unremarkable. Chemistry essentially unremarkable. CXR with no acute findings. CBC/BMP: 07/23/17 0736 07/23/17 0736 Significant Findings Laboratory Tests Test 07/21/17 17:55 07/22/17 01:32 07/22/17 07:00 07/23/17 07:36 Red Blood Count 3.95 MIL/MM3 (4.00-5.30) 3.66 MIL/MM3 (4.00-5.30) 3.80 MIL/MM3 (4.00-5.30) Random Glucose 168 MG/DL (74-106) 161 MG/DL (74-106) Albumin 3.3 GM/DL (3.4-5.0) 2.9 GM/DL (3.4-5.0) 3.0 GM/DL (3.4-5.0) Aspartate Amino Transf (AST/SGOT) 14 U/L (15-37) 14 U/L (15-37) Estimat Glomerular Filtration Rate 67 ML/MIN (>89) 80 ML/MIN (>89) Troponin I 0.13 NG/ML (0.02-0.05) 0.12 NG/ML (0.02-0.05) 0.08 NG/ML (0.02-0.05) Hematocrit 34.1 % (35.0-46.0) Chloride Level 110 MEQ/L (98-107) 109 MEQ/L (98-107) Phosphorus Level 2.3 MG/DL (2.5-4.9) Potassium Level 3.0 MEQ/L (3.5-5.1) Imaging Last Impressions Chest X-Ray 07/21/171814 Signed Impressions: Service Date/Time: Friday, July 21, 2017 18:37 - CONCLUSION: No acute disease. No significant change has occurred. Chandler Dorsey MD PE at Discharge GENERAL: Awake alert oriented talkative and cooperative SKIN: Warm and dry. HEAD: Atraumatic. Normocephalic. EYES: Pupils equal and round. No scleral icterus. No injection or drainage. Extraocular muscles intact ENT: No nasal bleeding or discharge. Mucous membranes pink and moist. Tongue is midline NECK: Trachea midline. No JVD. Supple CARDIOVASCULAR: Regular rate and rhythm. S1 and S2 no S3 or S4 RESPIRATORY: No accessory muscle use. Clear to auscultation. Breath sounds equal bilaterally. GASTROINTESTINAL: Abdomen soft, non-tender, nondistended. Hepatic and splenic margins not palpable. MUSCULOSKELETAL: Extremities without clubbing, cyanosis, or edema. No obvious deformities. NEUROLOGICAL: Awake and alert. No obvious cranial nerve deficits. Motor grossly within normal limits. Five out of 5 muscle strength in the arms and legs. Normal speech. PSYCHIATRIC: Appropriate mood and affect; insight and judgment normal. Hospital Course This is an 82-year-old female with a PMH of HTN, GERD and DM who is brought to the ER or syncopal event. Recent admit 07/01/17 for near syncope w/ abnormal EKG , s/p eval by Dr. Contreras w/ recommendation for ischemic work up. Nuclear Stress 07/01/17 negative for ischemia, low risk, cardiac enzymes negative. Was seen in Dr. Contreras's office today as follow up and noted to have elevated BP 200's systolic, s/p Clonidine PO x2 doses w/ BP 130's. States she was leaving the office and developed nausea/vomiting followed by syncopal event. No head trauma. On arrival, BP 182/73, HR 59, O2 sat 97% on RA, Afebrile. CBC unremarkable. Chemistry essentially unremarkable. CXR with no acute findings. 2-10 had a near syncopal episode. Await cardiology evaluation Near syncopal episode may have been due to the clonidine lowering her blood pressure quickly And or vasovagal Await cardiology evaluations discussed with patient and RN 2-11 SEEN BY CARDIOLOGY LAST NIGHT STARTED ON NORVASC HAD BUMPED HER TROPONINS ON ADMISSION BLOOD PRESSURE NOT AT GOAL THIS TIME YET INCREASE NORVASC TO 5MG BID AND STOP FLUIDS IF BLOOD PRESSURE IS BETTER THEN DC TO HOME LATER TODAY DID WELL WITH PT BLOOD PRESSURE IS IMPROVED WILL DC TO HOME TODAY FOLLOW UP WITH CARDIOLOGY AND PCP Pt Condition on Discharge: Good Discharge Disposition: Discharge Home Discharge Time: <= 30 minutes Discharge Instructions DIET: Follow Instructions for: Heart Healthy Diet, Diabetic Diet Speech Therapy-Diet Recommends: Regular Activities you can perform: Regular-No Restrictions Follow up Referrals: Cardiology - 1 Week PCP Follow-up - 2-3 Days with Leon Alex Jr., MD ([place]) New Medications: Metformin (Metformin) 1,000 Mg Tab 1000 MG PO BIDPC for Blood Sugar Management, #60 TAB 0 Refills Amlodipine (Norvasc) 5 Mg Tab 5 MG PO BID for Blood Pressure Management, #60 TAB Continued Medications: Aspirin DR (Aspirin DR) 81 Mg Tabdr 81 MG PO DAILY for Blood Clot Prevention, #30 TAB Glipizide (Glipizide) 10 Mg Tab 10 MG PO BIDAC for Blood Sugar Management, #60 TAB 0 Refills (This prescription has been renewed) Take 30 minutes before a meal Discontinued Medications: Atenolol (Atenolol) 50 Mg Tab 50 MG PO DAILY for Blood Pressure Management, #30 TAB 0 Refills Metformin (Metformin) 500 Mg Tab 500 MG PO BIDPC for Blood Sugar Management, #60 TAB 0 Refills Thierno Pugh DO Jul 23, 2017 12:24
[2017-07-23 12:49] LABS: HEMOGLOBIN A1C 8.6 % (4.3-6.0)
[2017-07-23] MEDS ORDERED: amLODIPine BESYLATE 5 MG TAB PO SCH (21:00)
== END 2017-07-23 14:30 | disposition home or self-care (01) ==
LOC: NEDAMB 17:01 → NEDA 19:15 → NEPGCP 20:41
PROVIDERS: ADMIT Hospitalist; ATTEND Hospitalist
DX: R55 Syncope and collapse (principal); R00.1 Bradycardia, unspecified; I10 Essential (primary) hypertension; K21.9 Gastro-esophageal reflux disease without esophagitis; E86.0 Dehydration; E87.6 Hypokalemia; E11.9 Type 2 diabetes mellitus without complications; Z79.84 Long term (current) use of oral hypoglycemic drugs; Z90.710 Acquired absence of both cervix and uterus
CPT/HCPCS: 71045; 80053; 82550; 82948; 83036; 83735; 84100; 84439; 84443; 84484; 85025; 93005; 96361; 96372; 96374; 96375; 96376; 97161; 97165; 99285; G0378; G8987; G8988; G8989; J1815; J7030; J7040